=== PATIENT | female | born 1980 | race Caucasian/White ===

== ENCOUNTER 2018-02-03 15:06 | Outpatient (CLI) | payer BC, SELFPAY ==
--- NOTE | 2018-02-03 15:11 | DI.RAD_ITS ---
SYMPTOMS/DIAGNOSIS: COUGH, R05 PA AND LATERAL CHEST: The heart is normal in size. The lungs are clear. The mediastinal structures and pleura appear intact. CONCLUSION: Normal chest.
== END 2018-02-03 15:26 ==
PROVIDERS: PCP Nurse Practitioner; Visit Provider Nurse Practitioner
DX: R05 Cough (principal)
CPT/HCPCS: 71046

== ENCOUNTER 2018-03-10 11:48 | Outpatient (REF) | payer BC, SELFPAY | END 2018-03-10 12:08 | LOC: LBN 11:48 | PROVIDERS: PCP Nurse Practitioner; Visit Provider Family Medicine | DX: R30.0 Dysuria (principal) | CPT/HCPCS: 87086 ==

== ENCOUNTER 2018-04-05 10:35 | Emergency (ER) | payer BC, SELFPAY ==
[2018-04-05 10:39] VITALS: BP 121/80; PULSE 69; RESP 16; TEMP 36.4; O2SAT 99
--- NOTE | 2018-04-05 10:55 | DI.CT_ITS ---
SYMPTOM/DIAGNOSIS: CONTUSION TO LEFT KIDNEY. RENAL COLIC CT: Comparison CT scan 06/07/17. The visualized lung bases are clear. The unenhanced visualized portions of the liver, spleen, pancreas and bile ducts, and adrenal glands are unremarkable. The patient is status post cholecystectomy. 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 No nephrolithiasis, ureterolithiasis or hydronephrosis is seen. The urinary bladder is intact. The patient appears to be status post hysterectomy. There is a trace amount of free fluid in the left pericolic gutter. No focal fluid collection, abdominal or pelvic adenopathy or pneumoperitoneum is seen. No acute abnormality is seen in the osseous structures. IMPRESSION: No acute abnormality. No evidence of nephrolithiasis or obstructive uropathy.
--- NOTE | 2018-04-05 10:58 | W.ED.GENAD ---
Discharge Plan Disposition Patient Disposition: HOME Condition: Good Discharge Details Chief Complaint: FlankPain Clinical Impression: Back contusion Primary Care Provider: Kateryna Wilder ED Provider: Burt Haile Home Meds and New Rx's Prescriptions: No Action ipratropium-albuterol 0.5 mg-3 mg(2.5 mg base)/3 mL solution for nebulization 3 ml IH Q8H Qty: 180 RF: 3 nebulizer accessories misc .ROUTE .MEDSUPPLY Qty: 1 RF: 12 fexofenadine [Allergy Relief (fexofenadine)] 180 mg tablet 180 mg PO DAILY RF: 0 ProAir HFA 90 mcg/actuation HFA aerosol inhaler 2 puff Inhalation Q6H PRN (Reason: shortness of breath or wheezing) Qty: 1 RF: 12 gabapentin 300 MG capsule 300 mg PO BID Qty: 180 RF: 3 multivitamin [One Daily Essential] 1 EACH tablet 2 ea PO DAILY RF: 0 cholecalciferol (vitamin D3) 5,000 UNIT capsule 5,000 unit PO DAILY RF: 0 epinephrine [EpiPen 2-Chinedu] 0.3 MG/0.3 ML auto-injector 0.3 mg IM PRN Qty: 2 RF: 12 montelukast [Singulair] 10 MG tablet 10 mg PO DAILY Qty: 90 RF: 3 Discharge Instructions Instructions: Contusion in Adults (ED) Additional Instructions: May use NSAID of your choice for the pain. Referrals: [facility] Emergency Dept. [Outside] - Return if symptoms worsen Medical Decision Making Exam and history consistent with left flank contusion. Concern of rupture to hemangioma and/or laceration will evaluate with CT and UA. UA negative for blood. Normal UA. Reviewed CT results with pt. Advised she could use ibuprofen or NSAID of her choice for the pain. Return to ED if symptoms worsen. Discussed difference in hemangioma and angiolipoma. Imaging Data Radiologic Study: Imaging: CT Scan Radiologist's impression: v-ariana: No acute process. Incidentally Angiomyolipoma is recognized not hemangioma. Previous U/S in October confirms Angiolipoma. Lab Data Lab results reviewed: Yes I reviewed the patient's lab results. Lab results narrative: UA negative for blood. Normal UA. HPI General Mode of arrival: ambulatory. Date/Time Provider Initiated Documentation: 04/05/18 10:39. Limitations to Documentation: no limitations. Information obtained by: patient. History of Present Illness 37 year old F presents to the emergency department with the chief complaint of fall and contusion to kidney, described as mild, HPI Narrative: 37 y/o female here with c/o let flank contusion after fall. Approximately three hours ago she slipped on ice and landed on her steps. She impacted her left flank and hip. She is concerned about the flank impact because of a history of left renal hemangioma. She has urinated since the fall and did not see any blood in her urine. The pain has increased and she notices a mirella where the impact was. Denies any N/V/D or abdominal pain. Denies hitting her head. Related Data Home Medications Medication Instructions Recorded Confirmed gabapentin 300 mg PO BID #180 tab-cap 12/08/14 03/10/18 multivitamin [One Daily Essential] 2 ea PO DAILY 01/04/15 04/05/18 cholecalciferol (vitamin D3) 5,000 unit PO DAILY 02/06/17 04/05/18 epinephrine [Epipen 2-Chinedu] 0.3 mg IM PRN #2 syringe 03/15/17 04/05/18 montelukast [Singulair] 10 mg PO DAILY #90 tab-cap 10/31/17 04/05/18 albuterol sulfate HFA 90 2 puff INHALATION Q6H PRN #1 gm 01/24/18 04/05/18 mcg/actuation aerosol inhaler ipratropium-albuterol 0.5 mg-3 3 ml IH Q8H #180 ml 02/03/18 04/05/18 mg(2.5 mg base)/3 mL nebulization soln nebulizer accessories misc #1 each 02/03/18 03/10/18 fexofenadine 180 mg tablet 180 mg PO DAILY 03/10/18 04/05/18 Previous Rx's Medication Instructions Recorded epinephrine [Epipen 2-Chinedu] 0.3 mg IM PRN #2 syringe 03/15/17 montelukast [Singulair] 10 mg PO DAILY #90 tab-cap 10/31/17 albuterol sulfate HFA 90 2 puff INHALATION Q6H PRN #1 gm 01/24/18 mcg/actuation aerosol inhaler ipratropium-albuterol 0.5 mg-3 3 ml IH Q8H #180 ml 02/03/18 mg(2.5 mg base)/3 mL nebulization soln nebulizer accessories misc #1 each 02/03/18 Allergies Allergy/AdvReac Type Severity Reaction Status Date / Time Latex, Natural Rubber Allergy Intermediate rash Verified 04/05/18 10:44 metronidazole Allergy Intermediate Skin Rash Verified 04/05/18 10:44 sumatriptan [From Imitrex] AdvReac Unknown palpitation Verified 04/05/18 10:44 sumatriptan succinate AdvReac Unknown palpitation Verified 04/05/18 10:44 [From Imitrex] enviornmental Allergy Mild head Uncoded 04/05/18 10:44 congestion General Stated Complaint: FlankPain ARDEN: 3 Review of Systems Cardiovascular Reports system reviewed and no additional complaints, except as docu Respiratory Reports system reviewed and no additional complaints, except as docu Gastrointestinal Reports system reviewed and no additional complaints, except as docu Genitourinary Reports flank pain (after fall) Musculoskeletal Reports back pain Neurologic Reports system reviewed and no additional complaints, except as docu Hematologic/Lymphatic Reports system reviewed and no additional complaints, except as docu PFSH Medical History Asthma Endometriosis IBS (irritable bowel syndrome) Migraine with aura SHANNON (obstructive sleep apnea) Surgical History Cholecystectomy (01/15/17) Diagnostic Laproscopy (~2003) Dilation and curettage EGD - MAC (01/08/17) Endometrial Ablation (~2009) Hysterectomy, Laproscopic (03/09/15) Ligation of fallopian tube Family History Mother Alcohol abuse Essential hypertension Father Diabetes Essential hypertension Hyperlipidemia Sister No problems noted. Sister No problems noted. Brother No problems noted. Brother No problems noted. Sister No problems noted. Social History Smoking/Tobacco Use Status: Former Tobacco Use Exam Const General: cooperative, healthy appearing, comfortable and no acute distress Nutritional Appearance: average body habitus Orientation: alert, awake and oriented x3 HENMT Head: atraumatic Ears: hearing grossly normal bilaterally and external ears normal Eyes General: appearance normal, both eyes and all related structures Neck Neck: normal visual inspection, full ROM and no lymphadenopathy Resp Effort & Inspection: normal respiratory effort Auscultation: clear to auscultation bilaterally Cardio Rate: regular rate Rhythm: regular rhythm GI Inspection: non-distended Palpation: soft and tender in the LLQ and in the LUQ; not in the epigastrum, not at McBurney's point, Hope's sign negative and with no rebound tenderness Back/Spine/Pelvis Back: CVA tenderness (left ), ecchymosis (left flank. Early yet, more redness from abrasion from inpact on step) and back tenderness (left flank region. ) Cervical Spine: cervical ROM normal Thoracic/Lumbar Spine: thoraco-lumbar ROM normal Skin Trauma: abrasion (left flank) Neuro General: alert, awake, oriented x3 and gait normal Extrem General: full ROM and normal capillary refill Course Vital Signs Temperature 36.4 C L 04/05/18 10:39 Pulse 69 04/05/18 10:39 Respiratory Rate 16 04/05/18 10:39 Blood Pressure 121/80 04/05/18 10:39 Pulse Oximetry 99 04/05/18 10:39 Temperature 36.4 C L 04/05/18 10:39 Temperature Source Temporal Artery Scan 04/05/18 10:39 Pulse 69 04/05/18 10:39 Respiratory Rate 16 04/05/18 10:39 Respiratory Effort Non-Labored 04/05/18 10:42 Blood Pressure 121/80 04/05/18 10:39 Blood Pressure Position Sitting 04/05/18 10:39 Pulse Oximetry 99 04/05/18 10:39 Oxygen Delivery Method Room Air 04/05/18 10:39 Oxygen Flow Rate 0 04/05/18 10:39 Pain Level 3 04/05/18 10:39
[2018-04-05 11:06] LABS: Bilirubin Negative (Negative); Blood Negative (Negative); Clarity Clear; Glucose Negative (Negative); Ketones Negative (Negative); Leukocyte Esterase Negative (Negative); Nitrite Negative (Negative); Specific Gravity <= 1.005 (1.005-1.025); Urobilinogen 0.2 EU/dL (Up TO 0.2)
--- NOTE | 2018-04-05 11:12 | ED.GENADUL_ITS ---
Discharge Plan Disposition Patient Disposition: HOME Condition: Good Discharge Details Chief Complaint: FlankPain Clinical Impression: Back contusion Primary Care Provider: Kateryna Wilder ED Provider: Burt Haile Home Meds and New Rx's Prescriptions: No Action ipratropium-albuterol 0.5 mg-3 mg(2.5 mg base)/3 mL solution for nebulization 3 ml IH Q8H Qty: 180 RF: 3 nebulizer accessories misc .ROUTE .MEDSUPPLY Qty: 1 RF: 12 fexofenadine [Allergy Relief (fexofenadine)] 180 mg tablet 180 mg PO DAILY RF: 0 ProAir HFA 90 mcg/actuation HFA aerosol inhaler 2 puff Inhalation Q6H PRN (Reason: shortness of breath or wheezing) Qty: 1 RF: 12 gabapentin 300 MG capsule 300 mg PO BID Qty: 180 RF: 3 multivitamin [One Daily Essential] 1 EACH tablet 2 ea PO DAILY RF: 0 cholecalciferol (vitamin D3) 5,000 UNIT capsule 5,000 unit PO DAILY RF: 0 epinephrine [EpiPen 2-Chinedu] 0.3 MG/0.3 ML auto-injector 0.3 mg IM PRN Qty: 2 RF: 12 montelukast [Singulair] 10 MG tablet 10 mg PO DAILY Qty: 90 RF: 3 Discharge Instructions Instructions: Contusion in Adults (ED) Additional Instructions: May use NSAID of your choice for the pain. Referrals: [facility] Emergency Dept. [Outside] - Return if symptoms worsen Medical Decision Making Exam and history consistent with left flank contusion. Concern of rupture to hemangioma and/or laceration will evaluate with CT and UA. UA negative for blood. Normal UA. Reviewed CT results with pt. Advised she could use ibuprofen or NSAID of her choice for the pain. Return to ED if symptoms worsen. Discussed difference in hemangioma and angiolipoma. Imaging Data Radiologic Study: Imaging: CT Scan Radiologist's impression: v-ariana: No acute process. Incidentally Angiomyolipoma is recognized not hemangioma. Previous U/S in October confirms Angiolipoma. Lab Data Lab results reviewed: Yes I reviewed the patient's lab results. Lab results narrative: UA negative for blood. Normal UA. HPI General Mode of arrival: ambulatory . Date/Time Provider Initiated Documentation: 04/05/18 10:39 . Limitations to Documentation: no limitations . Information obtained by: patient . History of Present Illness 37 year old F presents to the emergency department with the chief complaint of fall and contusion to kidney, described as mild, HPI Narrative: 37 y/o female here wi th c/o let flank contusion after fall. Approximately three hours ago she slipped on ice and landed on her steps. She impacted her left flank and hip. She is concerned about the flank impact because of a history of left renal hemangioma. She has urinated since the fall and did not see any blood in her urine. The pain has increased and she notices a mirella where the impact was. Denies any N/V/D or abdominal pain. Denies hitting her head. Related Data Home Medications Medication Instructions Recorded Confirmed gabapentin 300 mg PO BID #180 tab-cap 12/08/14 03/10/18 multivitamin [One Daily Essential] 2 ea PO DAILY 01/04/15 04/05/18 cholecalciferol (vitamin D3) 5,000 unit PO DAILY 02/06/17 04/05/18 epinephrine [Epipen 2-Chinedu] 0.3 mg IM PRN #2 syringe 03/15/17 04/05/18 montelukast [Singulair] 10 mg PO DAILY #90 tab-cap 10/31/17 04/05/18 albuterol sulfate HFA 90 2 puff INHALATION Q6H PRN #1 gm 01/24/18 04/05/18 mcg/actuation aerosol inhaler ipratropium-albuterol 0.5 mg-3 3 ml IH Q8H #180 ml 02/03/18 04/05/18 mg(2.5 mg base)/3 mL nebulization soln nebulizer accessories misc #1 each 02/03/18 03/10/18 fexofenadine 180 mg tablet 180 mg PO DAILY 03/10/18 04/05/18 Previous Rx's Medication Instructions Recorded epinephrine [Epipen 2-Chinedu] 0.3 mg IM PRN #2 syringe 03/15/17 montelukast [Singulair] 10 mg PO DAILY #90 tab-cap 10/31/17 albuterol sulfate HFA 90 2 puff INHALATION Q6H PRN #1 gm 01/24/18 mcg/actuation aerosol inhaler ipratropium-albuterol 0.5 mg-3 3 ml IH Q8H #180 ml 02/03/18 mg(2.5 mg base)/3 mL nebulization soln nebulizer accessories misc #1 each 02/03/18 Allergies Allergy/AdvReac Type Severity Reaction Status Date / Time Latex, Natural Rubber Allergy Intermediate rash Verified 04/05/18 10:44 metronidazole Allergy Intermediate Skin Rash Verified 04/05/18 10:44 sumatriptan [From Imitrex] AdvReac Unknown palpitation Verified 04/05/18 10:44 sumatriptan succinate AdvReac Unknown palpitation Verified 04/05/18 10:44 [From Imitrex] enviornmental Allergy Mild head Uncoded 04/05/18 10:44 congestion General Stated Complaint: FlankPain ARDEN: 3 Review of Systems Cardiovascular Reports system reviewed and no additional complaints, except as docu Respiratory Reports system reviewed and no additional complaints, except as docu Gastrointestinal Reports system reviewed and no additional complaints, except as docu Genitourinary Reports flank pain (after fall) Musculoskeletal Reports back pain Neurologic Reports system reviewed and no additional complaints, except as docu Hematologic/Lymphatic Reports system reviewed and no additional complaints, except as docu PFSH Medical History Asthma Endometriosis IBS (irritable bowel syndrome) Migraine with aura SHANNON (obstructive sleep apnea) Surgical History Cholecystectomy (01/15/17) Diagnostic Laproscopy (~2003) Dilation and curettage EGD - MAC (01/08/17) Endometrial Ablation (~2009) Hysterectomy, Laproscopic (03/09/15) Ligation of fallopian tube Family History Mother Alcohol abuse Essential hypertension Father Diabetes Essential hypertension Hyperlipidemia Sister No problems noted. Sister No problems noted. Brother No problems noted. Brother No problems noted. Sister No problems noted. Social History Smoking/Tobacco Use Status: Former Tobacco Use Exam Const General: cooperative, healthy appearing, comfortable and no acute distress Nutritional Appearance: average body habitus Orientation: alert, awake and oriented x3 HENMT Head: atraumatic Ears: hearing grossly normal bilaterally and external ears normal Eyes General: appearance normal, both eyes and all related structures Neck Neck: normal visual inspection, full ROM and no lymphadenopathy Resp Effort & Inspection: normal respiratory effort Auscultation: clear to auscultation bilaterally Cardio Rate: regular rate Rhythm: regular rhythm GI Inspection: non-distended Palpation: soft and tender in the LLQ and in the LUQ; not in the epigastrum, not at McBurney's point, Hope's sign negative and with no rebound tenderness Back/Spine/Pelvis Back: CVA tenderness (left ), ecchymosis (left flank. Early yet, more redness from abrasion from inpact on step) and back tenderness (left flank region. ) Cervical Spine: cervical ROM normal Thoracic/Lumbar Spine: thoraco-lumbar ROM normal Skin Trauma: abrasion (left flank) Neuro General: alert, awake, oriented x3 and gait normal Extrem General: full ROM and normal capillary refill Course Vital Signs Temperature 36.4 C L 04/05/18 10:39 Pulse 69 04/05/18 10:39 Respiratory Rate 16 04/05/18 10:39 Blood Pressure 121/80 04/05/18 10:39 Pulse Oximetry 99 04/05/18 10:39 Temperature 36.4 C L 04/05/18 10:39 Temperature Source Temporal Artery Scan 04/05/18 10:39 Pulse 69 04/05/18 10:39 Respiratory Rate 16 04/05/18 10:39 Respiratory Effort Non-Labored 04/05/18 10:42 Blood Pressure 121/80 04/05/18 10:39 Blood Pressure Position Sitting 04/05/18 10:39 Pulse Oximetry 99 04/05/18 10:39 Oxygen Delivery Method Room Air 04/05/18 10:39 Oxygen Flow Rate 0 04/05/18 10:39 Pain Level 3 04/05/18 10:39
--- NOTE | 2018-04-05 12:07 | DI.VRAD_ITS ---
EXAM: CT Abdomen and Pelvis Without Contrast EXAM DATE/TIME: 04/05/2018 10:58 AM CLINICAL HISTORY: 37 years old, female; Pain; Other: Lt kidney pain after contusion to left kidney; Patient HX: Prior surgery: Hysterectomy TECHNIQUE: Axial computed tomography images of the abdomen and pelvis without contrast. All CT scans at this facility use at least one of these dose optimization techniques: automated exposure control; mA and/or kV adjustment per patient size (includes targeted exams where dose is matched to clinical indication); or iterative reconstruction. Coronal and sagittal reformatted images were created and reviewed. COMPARISON: CT ABD PELVIS WITH CONTRAST 06/07/2017 8:23 PM FINDINGS: Lower thorax: No acute findings. ABDOMEN: Liver: Normal. No mass. Gallbladder and bile ducts: Cholecystectomy Pancreas: Normal. No ductal dilation. Spleen: Normal. No splenomegaly. Adrenals: Normal. No mass. Kidneys and ureters: 6 mm angiomyolipoma in the left kidney. No hydronephrosis. No renal calculus Stomach and bowel: Normal. No obstruction. No mucosal thickening. Appendix: Normal appendix PELVIS: Bladder: Unremarkable as visualized. Reproductive: Hysterectomy ABDOMEN and PELVIS: Intraperitoneal space: Minimal free fluid in the left pericolic gutter Bones/joints: No acute fracture. No dislocation. Soft tissues: Unremarkable. Vasculature: Normal. No abdominal aortic aneurysm. Lymph nodes: Small retroperitoneal nodes IMPRESSION: No acute process Dictated and Authenticated by: Lorena Castaneda MD. Ordering:ARIS Dallas MD
[2018-04-05 12:32] VITALS: BP 114/75; PULSE 59; RESP 18; TEMP 36.6; O2SAT 97
== END 2018-04-05 12:33 | disposition home or self-care (01) ==
PROVIDERS: Emergency Provider Nurse Practitioner Family; PCP Nurse Practitioner
DX: S30.0XXA Contusion of lower back and pelvis, initial encounter (principal); W01.0XXA Fall on same level from slipping, tripping and stumbling without subsequent striking against object, initial encounter
CPT/HCPCS: 99284; 74176; 81003

== ENCOUNTER 2018-05-06 13:37 | Emergency (ER) | payer BC, SELFPAY ==
[2018-05-06] VITALS (54 sets, daily range): BP systolic 102–149; BP diastolic 50–91; PULSE 46–81; RESP 3–25; TEMP 36.6–36.7; O2SAT 93–100
--- NOTE | 2018-05-06 13:43 | DI.RAD_ITS ---
SYMPTOMS/DIAGNOSIS: PALPITATIONS PA AND LATERAL CHEST: Comparison is made with January,. The heart size is normal. The lungs are clear. No infiltrate, effusion or pneumothorax is seen. IMPRESSION: Negative chest x-ray.
[2018-05-06] MEDS: Normal Saline 1,000 ML 1000 ML IV (13:59)
[2018-05-06] MEDS: Normal Saline Flush 10 ML SYR IVP (14:01)
--- NOTE | 2018-05-06 14:04 | ED.GENADUL_ITS ---
Addendum entered and electronically signed by Burt Nam M.D. 05/06/18 17:46: 2nd ekg showed sinus rhythm, rate of 62, pr 172, no acute st t wave changes Original Note: Medical Decision Making <Burt Nam MD - Last Filed: 05/06/18 17:46> ECG Data Attestation: I personally reviewed and interpreted this ECG (s) as follows: Prior ECG tracings: not available for review Interpretation: sinus rhythm with rate of 66, pac's, pr 168, no acute st t wave ischemic changes <MYRIAM Trent - Last Filed: 05/08/18 17:10> Patient is a 37 year old female, history of asthma, endometriosis, IBS, migraine, SHANNON, peptic ulcer disease, presenting today with c/c of palpitations. She reports that she began having palpitations while at lunch break from work at 1100 today. She reports that since then she has had intermittent SOB with palpitations and chest pressure. STates these only last a few minutes and self resolve. Has not noted change with exertion or activity. She reports that she has had similar episodes in the past particularly around areas of stress. She reports that she has had increased stress and fatigue recently with increased work hours. Symptoms are intermittent and not linked to any particaular activity. Currently asymptomatic. Denies SOB currently, has not needed asthma treatment in a few weeks. No recent illness. No GI upset. No personal or familial history of cardiac disease. Endorses family history of HTN, no personal history of this. On exam, she appears fatigued. Normal heart sounds. Lungs clear. No abdominal pain. Plan to obtain cxr, EKG, labs. Discussed with patient. EKG reviewed by Dr. Nam, he noted PACs but otherwise no acute changes. NSR with rate of 66. CXR reviewed by radiologist: A AND LATERAL CHEST: Comparison is made with January,. The heart size is normal. The lungs are clear. No infiltrate, effusion or pneumothorax is seen. IMPRESSION: Negative chest x-ray. Labs significant for hypokalemis of 3.3, will replenish this here. Otherwise no significant abnormality. Troponin <0.02, will obtain 4 hour troponin and repeat EKG at that time. Discussed findings with the patient. She continues to have PACs on the monitor, will continue to watch. She is resting comfortably, currently asymptomatic. Patient receiving hydration and will obtain repeat troponin. Patient expressed to patient that she has had similar episodes previously with panic attacks. At the end of my shift, care was transitioned to Ángel Downey NP with repeat troponin and EKG pending. Plan to place zio patch if this remains normal. HPI <Burt Nam MD - Last Filed: 05/06/18 17:46> General Date/Time Provider Initiated Documentation: 05/06/18 13:38 . Related Data Home Medications Medication Instructions Recorded Confirmed multivitamin [One Daily Essential] 2 ea PO DAILY 01/04/15 05/06/18 cholecalciferol (vitamin D3) 5,000 unit PO DAILY 02/06/17 05/06/18 montelukast [Singulair] 10 mg PO DAILY #90 tab-cap 10/31/17 05/06/18 albuterol sulfate HFA 90 2 puff INHALATION Q6H PRN #1 gm 01/24/18 05/06/18 mcg/actuation aerosol inhaler ipratropium-albuterol 0.5 mg-3 3 ml IH Q8H #180 ml 02/03/18 05/06/18 mg(2.5 mg base)/3 mL nebulization soln nebulizer accessories misc #1 each 02/03/18 03/10/18 fexofenadine 180 mg tablet 180 mg PO DAILY 03/10/18 05/06/18 Previous Rx's Medication Instructions Recorded montelukast [Singulair] 10 mg PO DAILY #90 tab-cap 10/31/17 albuterol sulfate HFA 90 2 puff INHALATION Q6H PRN #1 gm 01/24/18 mcg/actuation aerosol inhaler ipratropium-albuterol 0.5 mg-3 3 ml IH Q8H #180 ml 02/03/18 mg(2.5 mg base)/3 mL nebulization soln nebulizer accessories misc #1 each 02/03/18 Allergies Allergy/AdvReac Type Severity Reaction Status Date / Time Latex, Natural Rubber Allergy Intermediate rash Verified 05/06/18 13:44 metronidazole Allergy Intermediate Skin Rash Verified 05/06/18 13:44 sumatriptan [From Imitrex] AdvReac Unknown palpitation Verified 05/06/18 13:44 sumatriptan succinate AdvReac Unknown palpitation Verified 05/06/18 13:44 [From Imitrex] enviornmental Allergy Mild head Uncoded 05/06/18 13:44 congestion <MYRIAM Trent - Last Filed: 05/08/18 17:10> General Mode of arrival: ambulatory . Limitations to Documentation: no limitations . Information obtained by: patient . History of Present Illness 37 year old F presents to the emergency department with the chief complaint of palpitations, described as moderate, with intensity rated at 4. Quality is described as aching (endorses chest pressure), and is localized to the chest. Patient reports no radiation. Patient started experiencing this hour(s) (began at 1100) and it has been intermittent. No relieving factors improve symptom(s), No exacerbating factors reported . Patient notes chest pain, malaise (reports increased fatigue secondary to increased work hours over the past few weeks) and shortness of breath (endorses SOB with palpitations); denies cough, diaphoresis, fever/chills, headaches, loss of appetite, nausea/vomiting, rash, seizure, syncope and weakness. Patient did receive the following treatments prior to arrival, none General Stated Complaint: Chest Pain ARDEN: 2 <MYRIAM Trent - Last Filed: 05/08/18 17:10> Constitutional Reports as per HPI, Denies chills, Denies fever(s), Denies headache(s), Denies lethargy and Denies poor appetite Eyes Denies change in vision ENT Denies headache(s) Cardiovascular Reports as per HPI, Reports chest pain, Denies chest pain with activity (intermittent), Denies syncope, Reports irregular heart rhythm, Denies leg edema, Reports lightheadedness, Denies radiating jaw, neck or arm pain, Reports palpitations, Reports dyspnea (with palpitations) and Denies dyspnea on exertion Respiratory Reports as per HPI, Denies cough, Reports dyspnea (with palpitations), Denies dyspnea on exertion and Denies wheezing Gastrointestinal Reports as per HPI, Denies abdominal pain, Denies diarrhea, Denies nausea and Denies vomiting Genitourinary Reports system reviewed and no additional complaints, except as docu (denies change in urinary habits) Musculoskeletal Reports as per HPI and Denies back pain Integumentary/Breasts Reports as per HPI and Denies rash Neurologic Denies syncope and Denies headache(s) Endocrine Reports palpitations Allergic/Immunologic Denies wheezing PFSH <Burt Nam MD - Last Filed: 05/06/18 17:46> Medical History Asthma Endometriosis IBS (irritable bowel syndrome) Migraine with aura SHANNON (obstructive sleep apnea) Surgical History Cholecystectomy (01/15/17) Diagnostic Laproscopy (~2003) Dilation and curettage EGD - MAC (01/08/17) Endometrial Ablation (~2009) Hysterectomy, Laproscopic (03/09/15) Ligation of fallopian tube Family History Mother Alcohol abuse Essential hypertension Father Diabetes Essential hypertension Hyperlipidemia Sister No problems noted. Sister No problems noted. Brother No problems noted. Brother No problems noted. Sister No problems noted. Social History Smoking/Tobacco Use Status: Former Tobacco Use <MYRIAM Trent - Last Filed: 05/08/18 17:10> Const General: cooperative, healthy appearing, comfortable, no acute distress and well developed Nutritional Appearance: average body habitus and well nourished Orientation: alert, awake and oriented x3 HENMT Head: normal to inspection Ears: hearing grossly normal bilaterally Mouth: moist mucous membranes Chest Chest: normal inspection of the chest, normal palpation of entire chest wall and no crepitus Resp Effort & Inspection: normal respiratory effort, able to speak in complete sentences and no respiratory distress Auscultation: clear to auscultation bilaterally, no rales, no rhonchi and no wheezes Cardio Rate: regular rate Rhythm: regular rhythm Heart Sounds: S1 normal and S2 normal GI Inspection: normal to inspection, no edema and non-distended Palpation: soft, no hepatosplenomegaly, not firm, no guarding, not rigid and nontender Auscultation: normal bowel sounds Back/Spine/Pelvis Back: no CVA tenderness Thoracic/Lumbar Spine: thoracic and lumbar spine normal to inspection Skin General skin exam: no rashes or lesions noted Trauma: no lacerations or abrasions Neuro General: alert, awake and oriented x3 Cognition: normal cognition Speech: speech normal Gait: normal gait Extrem General: normal to inspection, normal capillary refill, no pedal edema, no calf tenderness and normal gait Psych Appearance: grossly normal and well kempt Mental Status: mental status grossly normal Speech and Movement: speech and movement normal <MYRIAM Trent - Last Filed: 05/08/18 17:10> Vital Signs Temperature 36.7 C 05/06/18 13:40 Pulse 81 05/06/18 13:40 Respiratory Rate 16 05/06/18 13:40 Blood Pressure 149/86 H 05/06/18 13:40 Pulse Oximetry 100 05/06/18 13:40 Temperature 36.7 C 05/06/18 13:40 Temperature Source Skin 05/06/18 13:40 Pulse 81 05/06/18 13:40 Respiratory Rate 16 05/06/18 13:40 Respiratory Effort 05/06/18 13:56 Blood Pressure 149/86 H 05/06/18 13:40 Pulse Oximetry 100 05/06/18 13:40 Oxygen Delivery Method Room Air 05/06/18 13:40 Oxygen Flow Rate 0 05/06/18 13:40 Pain Level 3 05/06/18 13:40 Sign Out <Burt Nam MD - Last Filed: 05/06/18 17:46> Sign Out Data: Sign Out Comment: Care transitioned to Ángel Downey NP with 4 hour troponin and repeat EKG pending. Last updated by Neeta Hassan PA at 05/06/18 15:50 Post-Handoff Eval: Patient pending second troponin and EKG and disposition with potential ZIO patch if needed. Patient remained stable with no change in condition no new complaints. Agree with previous physical exam. Repeat EKG shows no acute changes compared to previous EKG performed in the day. Patient reassessed and states no chest pain, no further noted palpitations, no complaints at this time. Second troponin is also negative. Patient was given a ZIO patch and informed to follow-up with her primary care in the next couple weeks or return for any new or worsening symptoms. Given some aspect of stress-induced palpitations patient was encouraged to get plenty of rest, avoid caffeine and stimulants. After discussion of diagnosis and plan of care patient has no further needs, questions, or concerns and states clear understanding to return to the emergency department for any worsening symptoms.
[2018-05-06 14:08] LABS: Abs Immature Grans 0.02 k/cumm (0.0-0.09); Absolute Basophil Count 0.04 k/cumm (0.0-0.2); Absolute Lymphocyte Count 2.18 k/cumm (1.2-3.4); Absolute Monocyte Count 0.58 k/cumm (0.11-0.7); Absolute Neutrophil Count 4.39 k/cumm (1.2-6.7); Basophils % 0.5; Eosinophils % 1.4; HGB 14.9 g/dL (12.0-15.5); Immature Grans % 0.3; Lymphocytes % 29.8; Mean Corp. HGB Concentration 33.9 g/dL (32.0-36.0); Mean Corpuscular Hemoglobin 31.4 pg (27.0-33.0); Mean Corpuscular Volume 92.8 fL (80-95); Mean Platelet Volume 9.2 fL (8.0-11.0); Monocytes % 7.9; Neutrophils % 60.1; Platelet Count 325 x1000/uL (130-400); RBC 4.74 m/cumm (4.00-5.20); White Blood Cell Count 7.31 k/cumm (4.4-10.8)
[2018-05-06 14:20] LABS: ALT 20 U/L (12-78); AST 11 U/L (15-37); Albumin 4.1 g/dL (3.4-5.0); Alkaline Phosphatase 72 U/L (46-116); Anion Gap 9.8 mmol/L (3-11); BUN 13 mg/dL (7-18); Bilirubin, Total 0.5 mg/dL (0.2-1.0); CO2 30.2 mmol/L (21.0-32.0); CREATININE 0.97 mg/dL (0.55-1.02); Calcium 9.2 mg/dL (8.5-10.1); Chloride 101 mmol/L (98-107); Glucose 122 mg/dL (70-100); Magnesium 2.4 mg/dL (1.8-2.4); Potassium 3.3 mmol/L (3.5-5.1); Sodium 141 mmol/L (136-145); TSH 2.32 uIU/mL (0.358-3.74); Total Protein 8.4 g/dL (6.4-8.2)
[2018-05-06 14:26] LABS: Troponin I < 0.02 ng/mL (0.00-0.06)
[2018-05-06] MEDS: Potassium Chloride 20 MEQ TABCR PO (14:45)
--- NOTE | 2018-05-06 15:00 | NUR.NOTE ---
pt stated that she has had anxiety problems 4 yrs ago and couldn't breath tingling hands and stated that she was crying at the time and thought she was going to . pt stated that she has been using taping and grounding teak neak breathing with her pulse Nursing Note:
[2018-05-06 16:15] LABS: INR 0.9 (0.9-1.1); PTT Activated 24.8 sec (21.0-31.4); Prothrombin Time 9.1 sec (9.3-11.0)
[2018-05-06 18:18] LABS: Troponin I < 0.02 ng/mL (0.00-0.06)
--- NOTE | 2018-05-26 11:55 | ZIOP_ITS ---
ZIO PATCH INTERPRETATION DATE OF DICTATION May 26, 2018 INDICATION Palpitations. Analysis time - 10 days and 22 hours. Predominant underlying rhythm is sinus rhythm. Average heart rate 67 beats per minute. Minimum heart rate 44 beats per minute. Max heart rate 140 beats per minute. Frequent isolated atrial ectopy. Accounting for 8.6% of total beats. No runs of SVT or atrial fibrillation. No nonsustained VT. Rare isolated ventricular ectopy. No significant pauses or karan arrhythmias. 23 patient triggered events correspond predominantly to sinus rhythm and occasionally to sinus rhythm with isolated atrial ectopy. 14 diary entries with symptoms such as shortness of breath/chest pressure/fluttering/lightheadedness all predominantly corresponding to sinus rhythm and occasionally to sinus rhythm with isolated atrial ectopy. Pablo Chand M.D. GETACHEW/shannon T - 05/26/2018
== END 2018-05-06 18:48 | disposition home or self-care (01) ==
PROVIDERS: Physician Assistant; Emergency Provider Nurse Practitioner Family; PCP Nurse Practitioner Family
DX: R00.2 Palpitations (principal)
CPT/HCPCS: 36415; 80053; 93005; 93225; 96360; 99285; 71046; 83735; 84443; 84484; 85025; 85610; 85730; 93010

== ENCOUNTER 2018-06-26 06:58 | Outpatient (CLI) | payer BC, SELFPAY ==
[2018-06-26 08:50] LABS: Anion Gap 7.3 mmol/L (3-11); BUN 15 mg/dL (7-18); CO2 27.7 mmol/L (21.0-32.0); CREATININE 0.86 mg/dL (0.55-1.02); Calcium 8.7 mg/dL (8.5-10.1); Chloride 105 mmol/L (98-107); Cholesterol 202 mg/dL (50-200); Glucose 83 mg/dL (70-100); HDL Cholesterol 45 mg/dL (40-60); LDL CHOLESTEROL 126 mg/dL (<100); Sodium 140 mmol/L (136-145); Triglyceride 149 mg/dL (30-150)
== END 2018-06-26 07:18 ==
PROVIDERS: PCP Nurse Practitioner Family; Visit Provider Nurse Practitioner Family
DX: E78.5 Hyperlipidemia, unspecified (principal)
CPT/HCPCS: 36415; 80048; 80061; 83721

== ENCOUNTER 2018-10-27 01:14 | Outpatient (CLI) | payer BC, SELFPAY ==
--- NOTE | 2018-10-27 06:38 | DI.US_ITS ---
SYMPTOM/DIAGNOSIS; EPIGASTRIC PAIN, R10.13 ABDOMINAL ULTRASOUND: 10/27 Visualized liver parenchyma is normal in appearance. The gallbladder has been surgically removed. No biliary dilatation is seen. Pancreas is unremarkable as visualized but incompletely seen Kidneys are unremarkable with the exception of small echogenic focus of the left renal cortex, this probably corresponds to a small fat attenuation lesion seen on CT of 04/05/18 consistent with angiomyolipoma. Abdominal aorta and IVC are of normal diameter. CONCLUSION: No evidence of acute process. 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
== END 2018-10-27 01:34 ==
PROVIDERS: PCP Nurse Practitioner Family; Visit Provider Nurse Practitioner Family
DX: R10.13 Epigastric pain (principal); D17.71 Benign lipomatous neoplasm of kidney
CPT/HCPCS: 76700

== ENCOUNTER 2018-12-23 08:37 | Outpatient (REF) | payer BC, SELFPAY | END 2018-12-23 08:57 | LOC: LBN 08:37 | PROVIDERS: PCP Nurse Practitioner Family; Visit Provider Family Medicine | DX: R30.0 Dysuria (principal) | CPT/HCPCS: 87077; 87086; 87186 ==

== ENCOUNTER 2019-01-20 01:47 | Emergency (ER) | payer BC, SELFPAY ==
[2019-01-20 01:50] VITALS: BP 161/121; PULSE 131; RESP 24; TEMP 36.9; O2SAT 95
[2019-01-20 02:06] LABS: Bilirubin Negative (Negative); Blood Large (Negative); Clarity Clear (Clear); Glucose 100 mg/dL (Negative); Ketones Negative (Negative); Leukocyte Esterase Large (Negative); Nitrite Positive (Negative); Specific Gravity <= 1.005 (1.005-1.025)
--- NOTE | 2019-01-20 02:08 | ED.GENADUL_ITS ---
Discharge Plan Disposition Patient Disposition: HOME Condition: Good Discharge Details Chief Complaint: Urinary Clinical Impression: Complicated UTI (urinary tract infection) Primary Care Provider: Shefali Vizcarra ED Provider: Freedom Gonzalez [place] Meds and New Rx's Prescriptions: New hyoscyamine sulfate 0.125 mg tablet,disintegrating 0.125 mg PO BID-QID PRN (Reason: bladder spasms) Qty: 10 RF: 0 ciprofloxacin HCl 500 mg tablet 500 mg PO BID Qty: 14 RF: 0 Continued ipratropium-albuterol 0.5 mg-3 mg(2.5 mg base)/3 mL solution for nebulization 3 ml IH Q8H Qty: 180 RF: 3 Zyrtec 10 mg capsule 10 mg PO DAILY RF: 0 omeprazole 40 mg capsule,delayed release(DR/EC) 40 mg PO DAILY Qty: 90 RF: 4 Arnuity Ellipta 100 mcg/actuation blister with device 1 inh IH .QOD RF: 0 phentermine 15 mg capsule 15 mg PO DAILY RF: 0 albuterol sulfate [ProAir HFA] 90 mcg/actuation HFA aerosol inhaler 2 puff Inhalation Q6H PRN (Reason: shortness of breath or wheezing) Qty: 1 RF: 12 multivitamin [One Daily Essential] 1 EACH tablet 2 ea PO DAILY RF: 0 montelukast [Singulair] 10 mg tablet 10 mg PO DAILY Qty: 90 RF: 4 cholecalciferol (vitamin D3) 5,000 unit capsule 5,000 unit PO DAILY RF: 0 phenazopyridine [Pyridium] 200 mg tablet 200 mg PO TID PRN (Reason: pain) Qty: 6 RF: 0 Discharge Instructions Instructions: Ciprofloxacin (By mouth), Hyoscyamine (By mouth), Kidney Infection (ED) Additional Instructions: Because of the recent antibiotic use as well as the flank pain will presumed complicated UTI. We will place you on ciprofloxacin for 1 week. Pyridium as before if needed for discomfort with urination. Levsin if needed for bladder spasm. Tylenol and/or Motrin for pain fever. Follow-up with primary care in 2 to 3 days if not getting better. Return to ED for high fever, shaking chills, worsening back/flank pain, abdominal pain or vomiting. Referrals: Shefali Vizcarra, [employer]ANT [Primary Care Provider] - Medical Decision Making Signs and symptoms consistent with UTI. With complaint of flank and back pain and mild CVAT suggestive of possible pyelonephritis. She is afebrile. She is tachycardic but she is also hypertensive and quite uncomfortable. I do not think the tachycardia is related to sepsis but more pain and discomfort. Patient has been drinking plenty of fluids. She took Pyridium without relief. Urine dipstick here is positive for large blood and large leukocyte esterase as well as positive for nitrites. There are greater than 50 WBCs seen. Previous culture from a month ago was E. coli sensitive to everything but Bactrim. Given the recent antibiotics and the flank pain we will treat with Cipro 500 p.o. twice daily for 7 days. Will give Toradol for pain here. Will try Levsin for bladder spasm. Will continue Pyridium. Medical Records Medical records reviewed: Yes I reviewed the patient's medical records. Lab Data Lab results reviewed: Yes I reviewed the patient's lab results. HPI General Mode of arrival: ambulatory . Date/Time Provider Initiated Documentation: 01/20/19 01:58 . Limitations to Documentation: no limitations . Information obtained by: patient, RN notes reviewed and old records reviewed . HPI Narrative: Patient presents to ED with complaint of suprapubic pain, dysuria, urinary urgency. She has history of UTIs. She was recently diagnosed a month ago and treated for about 2 days with Keflex. Keflex was discontinued because of a rash though it was unclear whether the rash was related to antibiotic or viral illness that she had as well. She seemed to be doing okay until today. Started to have urinary symptoms which got significantly worse tonight. She has not had fever or chills. She has some right back/flank pain though not severe. Most of her discomfort is suprapubic pain, dysuria, urgency. She did take a leftover Pyridium about 4 hours prior to arrival. It has not really helped. She has not taken Tylenol or Motrin. Related Data Home Medications Medication Instructions Recorded Confirmed multivitamin [One Daily Essential] 2 ea PO DAILY 01/04/15 01/20/19 albuterol sulfate 90 mcg/actuation 2 puff INHALATION Q6H PRN #1 gm 01/24/18 01/20/19 aerosol inhaler ipratropium-albuterol 0.5 mg-3 3 ml IH Q8H #180 ml 02/03/18 01/20/19 mg(2.5 mg base)/3 mL nebulization soln cetirizine 10 mg capsule 10 mg PO DAILY 09/05/18 01/20/19 omeprazole 40 mg capsule,delayed 40 mg PO DAILY #90 cap 09/05/18 01/20/19 release fluticasone furoate 100 1 inh IH .QOD each 10/17/18 01/20/19 mcg/actuation blister powder for inhalation montelukast 10 mg tablet 10 mg PO DAILY #90 tab-cap 12/03/18 01/20/19 cholecalciferol (vitamin D3) 5,000 5,000 unit PO DAILY 12/23/18 01/20/19 unit capsule phentermine 15 mg capsule 15 mg PO DAILY 12/23/18 01/20/19 ciprofloxacin HCl 500 mg PO BID #14 tab 01/20/19 hyoscyamine sulfate 0.125 mg PO BID-QID PRN #10 tab 01/20/19 phenazopyridine [Pyridium] 200 mg PO TID PRN #6 tab 01/20/19 Previous Rx's Medication Instructions Recorded albuterol sulfate 90 mcg/actuation 2 puff INHALATION Q6H PRN #1 gm 01/24/18 aerosol inhaler ipratropium-albuterol 0.5 mg-3 3 ml IH Q8H #180 ml 02/03/18 mg(2.5 mg base)/3 mL nebulization soln omeprazole 40 mg capsule,delayed 40 mg PO DAILY #90 cap 09/05/18 release montelukast 10 mg tablet 10 mg PO DAILY #90 tab-cap 12/03/18 ciprofloxacin HCl 500 mg PO BID #14 tab 01/20/19 hyoscyamine sulfate 0.125 mg PO BID-QID PRN #10 tab 01/20/19 phenazopyridine [Pyridium] 200 mg PO TID PRN #6 tab 01/20/19 Allergies Allergy/AdvReac Type Severity Reaction Status Date / Time Latex, Natural Rubber Allergy Intermediate rash Verified 01/20/19 01:58 metronidazole Allergy Intermediate Skin Rash Verified 01/20/19 01:58 sumatriptan [From Imitrex] AdvReac Unknown palpitation Verified 01/20/19 01:58 sumatriptan succinate AdvReac Unknown palpitation Verified 01/20/19 01:58 [From Imitrex] enviornmental Allergy Mild head Uncoded 01/20/19 01:58 congestion General Stated Complaint: Urinary ARDEN: 3 Review of Systems Constitutional Constitutional: Denies chills and Denies fever(s) Gastrointestinal Gastrointestinal: Reports abdominal pain (suprapubic), Denies diarrhea, Denies nausea and Denies vomiting Genitourinary Genitourinary: Reports dysuria, Reports flank pain and Reports urinary urgency [facility] Medical History Abnormal uterine bleeding (Resolved) S/p hysterectomy Allergic rhinitis (Chronic) Angiomyolipoma of left kidney (Inactive ~2016) Endometriosis (Resolved 09/22/13) Generalized anxiety disorder (Chronic) Hyperlipidemia (Chronic) Irritable bowel syndrome (Inactive 12/08/14) Migraine headache with aura (Inactive 09/22/13) Mild intermittent asthma (Inactive) SHANNON (obstructive sleep apnea) (Chronic ~2008) Vitamin D insufficiency (Inactive 01/04/15) Surgical History Cholecystectomy (Inactive 01/15/17) Diagnostic Laproscopy (Inactive ~2003) for endometriosis Dilation and curettage (Inactive) X 2 for bleeding EGD - MAC (Inactive 01/08/17) Endometrial Ablation (Inactive ~2009) in [place] Hysterectomy, Laproscopic (Inactive 03/08/15) [place] [facility] [place] AUB, endometriosis Ligation of fallopian tube (Inactive) Status post bilateral sal[place]ectomy (Inactive 03/08/15[place] [facility] [place] History Smoking/Tobacco Use Status: Former Tobacco Use Tobacco: How many years used: 15 Alcohol Intake: current Alcohol Intake frequency: holidays/special occasions only Drug use: Never Substance use type: does not use Current gender identity: decline to answer What is your relationship status?: refused to answer How often do you talk on the phone with friends or family?: decline to answer How often do you get together with friends or relatives?: decline to answer How often do you attend alevism or denominational services?: decline to answer Do you belong to any clubs or organized social groups?: decline to answer Panel score (0-1 are the most socially isolated patients): 0 Duration: 15-30 minutes/day Frequency: 5-6 times per week Jennifer/Anabaptist: Unitarian Universalist Special jennifer needs: No Do you feel safe at home: Yes Do you feel safe in your relationship?: Yes Female Reproductive History Menstrual Menopause type: surgical (Hysterectomy for AUB in 2015) History History 2 Para 2 Hx # Term Pregnancies Multiple births Hx # Pregnancies Ectopic pregnancies AB induced Hx Number of Living Children 2 AB spontaneous Exam Narrative Exam Narrative: Vitals: Afebrile. Tachy and Hypertensive due to pain/anxiety. Const: WDWN female in uncomfortable and crying. HEENT: NC/AT. Normal facial exam. Lungs: Normal respiratory effort. Lungs are clear. Cor: RRR without murmur/gallop. Tachy. Back: Mild right CVAT. Neuro: A+O x 3. CN grossly in tact. Good strength and no focal deficit. Course Vital Signs Vital signs: Vital Signs Temperature 98.4 F 01/20/19 01:50 Pulse 131 H 01/20/19 01:50 Respiratory Rate 24 01/20/19 01:50 Blood Pressure 161/121 H 01/20/19 01:50 Pulse Oximetry 95 01/20/19 01:50 Temperature 98.4 F 01/20/19 01:50 Pulse 131 H 01/20/19 01:50 Respiratory Rate 24 01/20/19 01:50 Respiratory Effort 01/20/19 02:01 Blood Pressure 161/121 H 01/20/19 01:50 Pulse Oximetry 95 01/20/19 01:50 Pain Level 10 01/20/19 02:01
[2019-01-20 02:12] LABS: RBC 0-2 (0-2); WBC >50 HPF (0-5)
[2019-01-20 02:13] LABS: Bacteria Few HPF (Negative); C & S Indicated? No/Sq. Contamination; Casts Negative LPF (Negative); Crystals Negative HPF (Negative); Epithelial Cells Moderate HPF (Negative); Mucus Negative (Negative)
[2019-01-20] MEDS: Ketorolac 30 MG/ML VIAL IM (02:21)
[2019-01-20] MEDS: Ciprofloxacin 500 MG TAB PO (02:28)
[2019-01-20] MEDS: Hyoscyamine 0.125 MG SL/ORAL/CHEW SL (02:28)
[2019-01-20 02:52] VITALS: BP 119/70; PULSE 68; RESP 16; O2SAT 96
== END 2019-01-20 02:52 | disposition home or self-care (01) ==
LOC: ER 02:53
PROVIDERS: Emergency Provider Emergency Medicine; PCP Nurse Practitioner Family
DX: N39.0 Urinary tract infection, site not specified (principal); Z87.440 Personal history of urinary (tract) infections
CPT/HCPCS: 36415; 96372; 99284; 81003; 81015; J1885; J3490

== ENCOUNTER 2019-01-30 09:14 | Outpatient (REF) | payer BC, SELFPAY ==
[2019-01-30 10:38] LABS: Bilirubin Negative (Negative); Blood Negative (Negative); Clarity Clear (Clear); Glucose Negative (Negative); Ketones Negative (Negative); Leukocyte Esterase Negative (Negative); Nitrite Negative (Negative); Urobilinogen 0.2 EU/dL (Up TO 0.2)
== END 2019-01-30 09:34 ==
LOC: LBN 09:14
PROVIDERS: PCP Nurse Practitioner Family; Visit Provider Nurse Practitioner Family
DX: N12 Tubulo-interstitial nephritis, not specified as acute or chronic (principal)
CPT/HCPCS: 81003; 87086

== ENCOUNTER 2019-07-14 15:29 | Outpatient (CLI) | payer BC, SELFPAY ==
[2019-07-14 17:48] LABS: Anion Gap 6.3 mmol/L (3-11); BUN 9 mg/dL (7-18); CO2 29.7 mmol/L (21.0-32.0); CREATININE 0.88 mg/dL (0.55-1.02); Calcium 8.7 mg/dL (8.5-10.1); Chloride 104 mmol/L (98-107); Glucose 83 mg/dL (74-106); Potassium 4.1 mmol/L (3.5-5.1); Sodium 140 mmol/L (136-145)
== END 2019-07-14 15:49 ==
PROVIDERS: PCP Nurse Practitioner Family; Visit Provider Nurse Practitioner Family
DX: K21.0 Gastro-esophageal reflux disease with esophagitis (principal); E87.6 Hypokalemia
CPT/HCPCS: 36415; 80048

== ENCOUNTER 2019-08-07 08:47 | Outpatient (CLI) | payer BC, SELFPAY ==
[2019-08-10 08:53] LABS: COVID-19 RT-PCR Result Not Detected (NotDetected)
== END 2019-08-07 09:07 ==
PROVIDERS: PCP Nurse Practitioner Family; Visit Provider Nurse Practitioner Family
DX: R05 Cough (principal)
CPT/HCPCS: U0003

== ENCOUNTER 2019-11-28 17:14 | Emergency (ER) | payer BC, SELFPAY ==
[2019-11-28] VITALS (12 sets, daily range): BP systolic 119–146; BP diastolic 74–82; PULSE 52–78; RESP 9–18; TEMP 36.6–36.7; O2SAT 98–100
--- NOTE | 2019-11-28 17:15 | RT.EKG_ITS ---
APPROVED REPORT Exam: Resting ECG Patient Location: E HR:59 bpm ECG Measurements Heart Rate 59 AXIS [place] 155 P 54 QRSd 97 QRS 2 QT 469 T 48 QTc 463 Conclusion Sinus. T wave inversion in V1-2, seen in previous EKG.
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
[2019-11-28 17:38] LABS: Abs Immature Grans 0.03 10^3/uL (0.0-0.06); Absolute Basophil Count 0.04 10^3/uL (0.0-0.2); Absolute Eosinophil Count 0.04 10^3/uL (0.0-0.7); Absolute Lymphocyte Count 1.22 10^3/uL (1.2-3.4); Absolute Monocyte Count 0.62 10^3/uL (0.1-0.8); Absolute Neutrophil Count 9.15 10^3/uL (1.2-6.7); Basophils % 0.4; Eosinophils % 0.4; HCT 38.8 % (36.0-46.0); HGB 13.6 g/dL (11.2-15.7); Immature Grans % 0.3; MCH 31.3 pg (27.0-33.0); MCHC 35.1 % (32.0-36.0); MCV 89.4 fL (80-95); MPV 9.3 fL (8.0-11.0); Monocytes % 5.6; Neutrophils % 82.3; Nucleated RBC 0 %; Platelet Count 334 10^3/uL (130-400); RBC 4.34 10^6/uL (3.93-5.22); RDW 11.5 % (11.7-14.6); RDW-SD 37.1 fL; WBC 11.12 10^3/uL (4.4-10.8)
[2019-11-28 17:56] LABS: ALT 21 U/L (14-59); AST 15 U/L (15-37); Albumin 3.9 g/dL (3.4-5.0); Alkaline Phosphatase 61 U/L (46-116); Anion Gap 13.6 mmol/L (3-11); BUN 13 mg/dL (7-18); Bilirubin, Total 0.6 mg/dL (0.2-1.0); CO2 21.4 mmol/L (21.0-32.0); CREATININE 1.02 mg/dL (0.55-1.02); Calcium 8.7 mg/dL (8.5-10.1); Chloride 101 mmol/L (98-107); Glucose 110 mg/dL (74-106); Magnesium 1.8 mg/dL (1.8-2.4); Potassium 3.2 mmol/L (3.5-5.1); Sodium 136 mmol/L (136-145); Total Protein 7.5 g/dL (6.4-8.2); Troponin I < 0.05 ng/mL (<0.06)
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
[2019-11-28] MEDS: Potassium Chloride 20 MEQ TABCR PO (18:36)
[2019-11-28] MEDS: Ketorolac 15 MG/ML VIAL IVP (18:36)
[2019-11-28] MEDS: Ondansetron 4 MG/2 ML VIAL IVP (20:10)
--- NOTE | 2019-11-28 20:45 | RT.EKG_ITS ---
APPROVED REPORT Exam: Resting ECG Patient Location: E HR:60 bpm ECG Measurements Heart Rate 60 AXIS NJ 174 P 67 QRSd 97 QRS -18 QT 455 T 29 QTc 447 Conclusion Sinus bradycardia...rate< 60 Atrial premature complex...SV complex w/ short R-R interval
[2019-11-28 20:54] LABS: Troponin I < 0.05 ng/mL (<0.06)
== END 2019-11-28 21:30 | disposition home or self-care (01) ==
PROVIDERS: Emergency Provider Registered Nurse Emergency; PCP Nurse Practitioner Family
DX: R07.81 Pleurodynia (principal); V93 Other injury due to accident on board watercraft, without accident to watercraft; Y93.16 Activity, rowing, canoeing, kayaking, rafting and tubing; E87.6 Hypokalemia; R11.0 Nausea; R42 Dizziness and giddiness; R06.02 Shortness of breath
CPT/HCPCS: 36415; 80053; 93005; 96374; 96375; 99285; 71046; 83735; 84484; 85025; 93010; 99284; J1885; J2405

== ENCOUNTER 2019-12-07 20:37 | Outpatient (REF) | payer BC, SELFPAY ==
[2019-12-07 21:17] LABS: Potassium 3.9 mmol/L (3.5-5.1)
== END 2019-12-07 20:57 ==
LOC: LBN 20:37
PROVIDERS: PCP Nurse Practitioner Family; Visit Provider Nurse Practitioner Family
DX: E87.6 Hypokalemia (principal)
CPT/HCPCS: 84132

== ENCOUNTER 2020-01-01 15:06 | Outpatient (REF) | payer BC, SELFPAY ==
[2020-01-06 09:24] LABS: Misc Referral (VDH) See Comments
== END 2020-01-01 15:26 ==
LOC: LBN 15:06
PROVIDERS: PCP Nurse Practitioner Family; Visit Provider Nurse Practitioner Family
DX: R10.9 Unspecified abdominal pain (principal)
CPT/HCPCS: 87329; 87505

== ENCOUNTER 2020-01-08 08:42 | Outpatient (CLI) | payer BC, SELFPAY ==
[2020-01-09 17:25] LABS: COVID-19 RT-PCR Result NEGATIVE (Negative)
== END 2020-01-08 09:02 ==
PROVIDERS: PCP Nurse Practitioner Family; Visit Provider Surgery
DX: Z01.818 Encounter for other preprocedural examination (principal)
CPT/HCPCS: U0003

== ENCOUNTER 2020-01-11 07:57 | Day surgery (SDC) | payer BC, SELFPAY ==
[2020-01-11 08:29] VITALS: BP 122/80; PULSE 59; RESP 16; TEMP 36.5; O2SAT 100
[2020-01-11] MEDS: Lactated Ringers 1,000 ML 80 ML IV (08:50)
[2020-01-11] MEDS: Dicyclomine 10 MG CAP PO (10:20)
--- NOTE | 2020-01-11 10:42 | BOWEL_PTH ---
PATIENT: Oneyda Mehta LOC: [facility] U#:[id number] AGE/SX: 39/F ROOM: RE01/11/[address]: Jennifer Benites : 1980 BED: DIS: 01/11/2020 SPEC #: [id number] RECD: 01/11/20 12:40 STATUS: BO RE #: [id number] EDMUND: 01/11/20 10:[address]: Jennifer Benites DEPT: Surgical Specimen RECD BY: Makenna Craven ENTERED: 01/11/20 12:44 SP TYPE: Bowel OTHR DR: Shefali Vizcarra, RUDY Tissues: 1 - BIOPSY BOWEL 2 - BIOPSY BOWEL 3 - STOMACH BIOPSY 4 - STOMACH BIOPSY 5 - ESOPHAGUS BIOPSY 6 - ESOPHAGUS BIOPSY 7 - BIOPSY BOWEL 8 - BIOPSY BOWEL 9 - BIOPSY BOWEL 10 - BIOPSY BOWEL 11 - BIOPSY BOWEL Procedures: GROSS AND MICRO LEVEL 4 Comments: [id number]
--- NOTE | 2020-01-11 11:22 | W.PM.ENDDOP ---
Date of service: 12/30/19 Time of Service: 11:22 Endoscopy Report DATE OF PROCEDURE: 01/11/20 PRE-OP DIAGNOSIS: epigastric abdom pain and diarrhea POST-OP DIAGNOSIS: same PROCEDURE: egd w/ bx colon w/ bx ANESTHESIA: MAC ESTIMATED BLOOD LOSS: 2 PATHOLOGY: other COMPLICATIONS: None DISPOSITION: same day PROCEDURE DESCRIPTION: After informed consent was obtained the patient was take to the procedure room and placed in a supine position. Monitors were applied and a time out was done. The patients name, date of , procedure type, allergies to medications and metal in their body was reviewed. A bite block was placed and the patient was sedated. Once sedated and comfortable the gastroscope was advanced through the oropharynx which was grossly normal into the esophagus. The proximal and mid-esophagus were nl. In the distal esophagus there were no esophageal erosions varices diverticula or strictures apparent. There is no esophagitis. There is no hiatal hernia.. The scope was advanced into the stomach and through the pylorus into the 3rd portion of the duodenum. The scope was maneuvered into the proxial jejunum. The mus[place] appears nl. Bx were tkaen. The duodenum was noted to be nl. Biopsies were done: Proximal jejunum, duodenal bulb, antrum, greater curvature, GE junction, distal esophagus. All specimen is retrieved and no bleeding is noted.. The scope was retracted back into the stomach and biopsies were done to rule out H. pylori. There were no ulcers. There is some mild to moderate gastritis in the antral region in a striped fashion. The scope was retroflexed. The cardia and fundus were noted to be normal. There no a hiatal hernia noted. The scope was retracted back into the esophagus and biopsies were done of the GE junction to rule out Sapp's. The Z line was regular.
--- NOTE | 2020-01-11 11:24 | COLE_ITS ---
Date of service: 01/11/20 Time of Service: 11:24 Colonoscopy Report Date of procedure: 01/11/20 Pre-op diagnosis general: abdominal pain and diarrhea Post-op diagnosis procedure note: same Procedure: CE and bx. Surgeon: Jennifer Benites Anesthesia proc note operative: MAC Estimated blood loss (mL): 2 Pathology: other Complications: None Disposition: same day Prep: Miralax/Dulcolax Retraction Time: 10 mins Procedure Description: After informed consent was obtained the patient was taken to the procedure room and placed in a left decubitous position. Monitors were applied and a time out was done. The patients name, date of , procedure, allergies to medications and metal in their body was reviewed. The patient was then sedated. Once sedated and comfortable a rectal exam was done. External exam was normal. Internal exam revealed a normal sphincter tone and no palpable masses. The scope was then introduced and retrofelexed. NO internal hemorrhoids were identified. The scope was then advanced to the cecum w/out difficulty. The TI and appendiceal orifice were identified. The prep was good. The scope was then slowly retracted over 10 minutes back into the rectum. There are no polyps AVMs or diverticula apparent. The mucosa appears pink and healthy. Biopsies taken the cecum 70 cm 50 cm 30 cm and at the rectum. All specimen is retrieved and no bleeding is noted. The scope was removed and the patient was woken up and taken back to Same day surgery in stable condition. The patient tolerated the procedure well and there were no immediate compl ications. Follow up: The patient should follow up at age 51 unless they develop changes in bowel habits or other new gastrointestinal complaints.
--- NOTE | 2020-01-11 11:27 | W.PM.DSUDISC ---
Discharge Plan Disposition Patient Disposition: HOME Condition: Good Discharge Details Reason For Visit: egd and colon scopes Attending Provider: Jennifer Benites Primary Care Provider: Shefali Vizcarra Home Meds and New Rx's Prescriptions: No Action ipratropium-albuterol 0.5 mg-3 mg(2.5 mg base)/3 mL solution for nebulization 3 ml IH Q8H Qty: 180 RF: 3 Zyrtec 10 mg capsule 10 mg PO DAILY RF: 0 levalbuterol tartrate [Xopenex HFA] 45 mcg/actuation HFA aerosol inhaler 2 inh IH .Q4-6H PRN (Reason: shortness of breath or wheezing) Qty: 15 RF: 4 bupropion HCl 300 mg tablet extended release 24 hr 300 mg PO QAM RF: 0 dicyclomine 20 mg tablet 20 mg PO QID Qty: 20 RF: 0 sucralfate [Carafate] 1 gram tablet 1 gm PO QID Qty: 28 RF: 0 multivitamin [One Daily Essential] 1 EACH tablet 2 ea PO DAILY RF: 0 montelukast [Singulair] 10 mg tablet 10 mg PO DAILY Qty: 90 RF: 4 cholecalciferol (vitamin D3) 125 mcg (5,000 unit) capsule 5,000 unit PO .Every other day RF: 0 (DME) inhalational spacing device Spacer See Rx Instructions .ROUTE .MEDSUPPLY Qty: 1 RF: 4 Arnuity Ellipta 100 mcg/actuation blister with device 1 inh IH DAILY Qty: 30 RF: 4 Hold Instructions: Uses in Fall and Spring pantoprazole 40 mg tablet,delayed release (DR/EC) 40 mg PO DAILY Qty: 90 RF: 4 Discharge Instructions Additional Instructions: Findings:gastritis seen today colon appears nl. Biopsy's were taken on both scopes Continue with lifestyle modifications: no alcohol, tobacco products, Aspirin or NSAID's (ibuprofen, Motrin, Naprosyn, aleve, etc), soda pop/any carbonated beverages, caffeine (including tea & chocolate), and acidic foods, (tomatoes, citrus, onions, peppermints) spicy foods. Do not lie down for 30 minutes after eating, and do not eat 2 hours prior to bedtime. Avoid wearing tight fitting clothing/ belts -No lifting over 20 pounds or strenuous activity x24 hours. -Small light meals x24 hours. Follow up: 2-3 wks Please call if you develop: fevers >101.5 Nausea or Vomiting Abdominal pain that is not transient DAY SURGERY UNIT POST COLONOSCOPY INSTRUCTIONS 1. Because there will be medication in your system for the next 24 hours, you may feel a little sleepy. Your coordination will be affected. Therefore: a. Do not drive or operate dangerous equipment for 24 hours. b. Do not drink alcohol beverages for 24 hours (not even beer). c. Plan to go home and rest for the day. 2. Generally there are no restrictions on your activity after a day or so has gone by, but you may feel a bit fatigued for a few days. 3 After you arrive home you may have a light meal and return to a normal diet as you can tolerate it without feeling sick to your stomach. 4. After surgery, you may feel pain or discomfort. This should be only transient, but if it persists please contact your doctor. 5. If there are any questions regarding the findings of your procedure, please feel free to contact your doctor. 6. If you are unable to contact your doctor with a problem, contact the hospital at [phone]. 7. Continue all your regular medications unless directed otherwise. I understand the above instructions and have no questions. Signature of Patient or Responsible Adult Escort Date/Time Name of Responsible Adult Escort Signature of Nurse Date/Time Diet:: Other Discharge Orders Discharge Orders: Discharge Order (Routine); Ordered 01/11/20 Ordered By: Jennifer Benites DS: Diagnosis Discharge Diagnosis (1) GERD with esophagitis: Status: Chronic (2) Irritable bowel syndrome: Status: Inactive (3) Chronic erosive gastritis: Status: Acute
[2020-01-11 11:50] VITALS: BP 124/66; PULSE 55; RESP 16; TEMP 36; O2SAT 100
== END 2020-01-11 12:31 | disposition home or self-care (01) ==
PROVIDERS: PCP Nurse Practitioner Family; Visit Provider Surgery
PROC: (CPT 45380; principal; 2020-01-11 09:15)
DX: K21.0 Gastro-esophageal reflux disease with esophagitis (principal); R19.7 Diarrhea, unspecified; G47.33 Obstructive sleep apnea (adult) (pediatric); E78.5 Hyperlipidemia, unspecified; J45.20 Mild intermittent asthma, uncomplicated; K29.70 Gastritis, unspecified, without bleeding
CPT/HCPCS: 45380; 43239; 88305; J2001

== ENCOUNTER 2020-03-30 01:05 | Outpatient (CLI) | payer BC, SELFPAY ==
[2020-03-30] MEDS: Omnipaque 350 MG/ML 50 ML BTL IJ (08:27)
[2020-03-30] MEDS: Breeza Beverage 473 ML BTL PO ×2 (08:27→08:28)
[2020-03-30] MEDS: Normal Saline - Diluent 50 ML VIAL IV (10:14)
[2020-03-30] MEDS: Omnipaque 350 MG/ML 100 ML BTL IJ (10:15)
--- NOTE | 2020-03-30 10:20 | DI.CT_ITS ---
EXAM: CT ABDOMEN PELVIS W CLINICAL HISTORY: incidental questionable left renal mass ON US,N28.89. TECHNIQUE: Imaging Protocol: Axial computed tomography images with coronal and sagittal reformatted images were created and reviewed CONTRAST MATERIAL: Intravenous: Omnipaque 100cc Oral: None COMPARISON: CT CT renal colic wo from 04/05/2018 FINDINGS: VISUALIZED LUNG BASES: No nodules nor pleural effusions evident. ABDOMEN: There is no ascites. LIVER: There are no obvious focal hepatic lesions evident . GALLBLADDER/BILIARY: Gallbladder surgically absent. CBD is not dilated. PANCREAS: No evidence of pancreatic mass nor dilatation of the pancreatic duct. SPLEEN: Spleen is not enlarged. No obvious intrasplenic lesions. Splenic and portal veins are paten t. ADRENALS: There are no significant adrenal masses. KIDNEYS: No calculi nor hydronephrosis. No solid renal masses. Small 6-7 millimeter hypodensity in th e lateral cortex left kidney noted is either small cysts or possible benign angiomyolipoma, as mentio hever on the prior study. ABDOMINAL AORTA: Abdominal aorta is not enlarged and there is no pdlbxbmbtjpybsk-fqfi-duskbr adenopat hy. ABDOMINAL WALL/GI: No evidence of significant anterior abdominal wall hernia. No bowel obstruction. In the left flank there is no abnormal fluid collection intimately associated with the lateral wall o f the colon at the splenic flexure level, this measuring 3 centimetres 1.2 centimetres by 2.5 centime arline. This does not contain gas. There is no surrounding streaking. No diverticuli seen in this re gion nor elsewhere in visualized colon, including the sigmoid. PELVIS: GI: No evidence of appendicitis.No evidence of sigmoid diverticulitis. LYMPH NODES: There is no intrapelvic nor inguinal adenopathy. REPRODUCTIVE: Uterus surgically absent. No abnormal adnexal masses. URINARY BLADDER: No calculi nor obvious masses evident OSSEOUS: No significant osseous lesions. IMPRESSION: 1. No evidence of renal calculi nor hydronephrosis. Also no calculi in the urinary bladder. 2. Small benign-appearing lesion in the lateral cortex of the left kidney which measures approximatel y 6 x 7 millimeters and is either small cyst or possible benign angiomyolipoma. No other focal renal findings. 3. There is a significant finding in the left flank which is and abnormal 3 x 2.5 x 1.2 centimeter fl uid collection intimately associated with the lateral wall of the splenic flexure of the colon, large r than previous. This fluid collect is uniform in density and is not contain sediment nor gas bubble s. In addition, there do not appear to be obvious diverticuli in this region or elsewhere in the col on and there is no significant stranding in the surrounding fat. Nevertheless, this finding requires close follow-up. RADIATION DOSE DELIVERED: 1,786.84mGy.cm Total DLP DATA REPOSITORY: All CT scans at this facility are submitted to the National Radiology Data Registry (NRDR) Dose Index Registry (DIR) with the [employer] (ACR). RADIATION OPTIMIZATION: All CT scans at this facility use at least one of these dose optimization te chniques: automated exposure control; mA and/or kV adjustment per patient size (includes targeted exa ms where dose is matched to clinical indication); or iterative reconstruction.
== END 2020-03-30 01:25 ==
PROVIDERS: PCP Nurse Practitioner Family; Visit Provider Physician Assistant
DX: N28.89 Other specified disorders of kidney and ureter (principal); R18.8 Other ascites
CPT/HCPCS: 74177; J3490; Q9967

== ENCOUNTER 2020-04-05 08:40 | Outpatient (CLI) | payer BC, SELFPAY ==
[2020-04-07 21:29] LABS: COVID-19 RT-PCR Result NEGATIVE (Negative)
== END 2020-04-05 09:00 ==
PROVIDERS: PCP Nurse Practitioner Family; Visit Provider Nurse Practitioner Family
DX: Z11.59 Encounter for screening for other viral diseases (principal)
CPT/HCPCS: U0003

== ENCOUNTER 2020-04-26 16:55 | Emergency (ER) | payer BC, SELFPAY ==
[2020-04-26 17:00] VITALS: BP 149/99; PULSE 89; RESP 17; TEMP 36.4; O2SAT 99
[2020-04-26 17:28] LABS: Bilirubin Negative (Negative); Blood Negative (Negative); Clarity Clear (Clear); Glucose Negative (Negative); HCT 43.1 % (36.0-46.0); HGB 14.4 g/dL (11.2-15.7); Ketones Negative (Negative); Leukocyte Esterase Negative (Negative); MCHC 33.4 % (32.0-36.0); MCV 92.9 fL (80-95); MPV 8.8 fL (8.0-11.0); Nitrite Negative (Negative); Platelet Count 324 10^3/uL (130-400); RBC 4.64 10^6/uL (3.93-5.22); RDW 11.7 % (11.7-14.6); RDW-SD 39.7 fL; Specific Gravity 1.015 (1.005-1.025); Urobilinogen 0.2 EU/dL (Up TO 0.2); WBC 10.21 10^3/uL (4.4-10.8)
--- NOTE | 2020-04-26 17:34 | W.ED.GENAD ---
Discharge Plan Disposition Patient Disposition: HOME Condition: Good Discharge Details Clinical Impression: Abdominal pain, Hypokalemia Primary Care Provider: Shefali Vizcarra ED Provider: Neeta Hassan Home Meds and New Rx's Prescriptions: Continued ipratropium-albuterol 0.5 mg-3 mg(2.5 mg base)/3 mL solution for nebulization 3 ml IH Q8H Qty: 180 RF: 3 Zyrtec 10 mg capsule 10 mg PO DAILY RF: 0 Linzess 72 mcg capsule 72 mcg PO DAILY RF: 0 diclofenac sodium [Voltaren] 1 % gel 2 g topical QID Qty: 100 RF: 0 valacyclovir [Valtrex] 1 gram tablet 1,000 mg PO TID Qty: 21 RF: 0 levalbuterol tartrate [Xopenex HFA] 45 mcg/actuation HFA aerosol inhaler 2 inh IH .Q4-6H PRN (Reason: shortness of breath or wheezing) Qty: 15 RF: 4 bupropion HCl 300 mg tablet extended release 24 hr 300 mg PO QAM RF: 0 dicyclomine 20 mg tablet 20 mg PO QID Qty: 20 RF: 0 sucralfate [Carafate] 1 gram tablet 1 gm PO QID Qty: 28 RF: 0 multivitamin [One Daily Essential] 1 EACH tablet 2 ea PO DAILY RF: 0 cholecalciferol (vitamin D3) 125 mcg (5,000 unit) capsule 5,000 unit PO .Every other day RF: 0 (DME) inhalational spacing device Spacer See Rx Instructions .ROUTE .MEDSUPPLY Qty: 1 RF: 4 Arnuity Ellipta 100 mcg/actuation blister with device 1 inh IH DAILY Qty: 30 RF: 4 Hold Instructions: Uses in Fall and Spring pantoprazole 40 mg tablet,delayed release (DR/EC) 40 mg PO DAILY Qty: 90 RF: 4 montelukast [Singulair] 10 mg tablet 10 mg PO DAILY Qty: 90 RF: 4 sucralfate [Carafate] 1 gram tablet 1 g PO QACHS Qty: 120 RF: 12 Discharge Instructions Instructions: Hypokalemia (ED), Abdominal Pain (ED) Additional Instructions: Your imaging is reassuring here today. Your pain is likely associated with your recent surgery. Your potassium was low as well. You are given both oral and IV potassium. Please continue to encourage potassium rich food intake. You are low potassium is likely associated with your prep for surgery. You may continue with Mylanta to help with symptomatic management. Please take as prescribed on the bottle. Please contact your surgeon tomorrow to discuss any persistent symptoms. Follow-up as previously scheduled. If you develop fever/chills, vomiting, increased pain or other new/worsening symptoms please seek care urgently once again. Referrals: Shefali Vizcarra NP [Primary Care Provider] - Discharge Data Discharge Date/Time-TO BE ENTERED AT DEPARTURE: 04/26/20 20:53 Medical Decision Making Patient is a pleasant 31-year-old female presenting today with chief complaint of abdominal pain. Patient reports that she is been having a work-up for IBS recently. She had an EGD and colonoscopy yesterday. She reports that since then she has had increasing epigastric and umbilical pain. Worse when she is swallowing. She reports that she has poor p.o. intake today secondary to the severe discomfort with swallowing. This is also certain movements increase her discomfort. She contacted her surgeon who advised that she come here. She denies any fevers or chills. No nausea or vomiting. States that she has not had any bowel movement since her prep for the colonoscopy. Normal urinary habits. On exam, patient appears uncomfortable with movements. She is significantly tender with some guarding in the epigastric and umbilical area. No rebound tenderness. Negative psoas or obturator sign. Lungs are clear, normal cardiac exam. Plan for labs. Also plan for imaging. Concern for potential perforation. Also considered pancreatitis although the intermittent as of this pain makes this less likely. Patient has had colonoscopy. Patient's potassium is 2.8. We will begin the IV. Holding off on any p.o. until he had imaging back. FINDINGS: Liver: Normal. No mass. Gallbladder and bile ducts: Cholecystectomy. Pancreas: Normal. No ductal dilation. Spleen: Normal. No splenomegaly. Adrenal glands: Normal. No mass. Kidneys and ureters: Stable small left renal angiomyolipoma. No hydronephrosis. Stomach and bowel: No obstruction. Stable fluid attenuation focus lateral to the splenic flexure measuring approximately 1.7 cm. Appendix: Normal appendix. Intraperitoneal space: Unremarkable. No free air. No significant fluid collection. Vasculature: Unremarkable. No abdominal aortic aneurysm. Lymph nodes: Unremarkable. No enlarged lymph nodes. Urinary bladder: Unremarkable as visualized. Reproductive: Unremarkable as visualized. Bones/joints: Unremarkable. No acute fracture. Soft tissues: Unremarkable. IMPRESSION: Stable fluid attenuation focus adjacent to the splenic flexure. No acute findings. Discussed these findings with the patient. We help with the pain with swallowing with a GI cocktail. Patient was unable to tolerate p.o. liquids, fluids and p.o. Potassium. She has had a total of 60 mg. She will continue to increase her potassium intake. She has been low historically. This however, is likely associated with her prep for her colonoscopy and endoscopy yesterday. I did ask that she contact her surgeon tomorrow to discuss any continued symptoms. Strict return precautions were given. Patient did request 1 dosing of viscous lidocaine to go home with. I did advise that Delmi would also work to help with symptom management. Will give 1 dose of viscous lidocaine to go home with. All of her questions and concerns were addressed and she is in agreement with this plan. [facility] General Mode of arrival: ambulatory. Date/Time Provider Initiated Documentation: 04/26/20 17:34. Limitations to Documentation: no limitations. Information obtained by: patient and RN notes reviewed. History of Present Illness 39 year old F presents to the emergency department with the chief complaint of Epigastric pain, described as mild, with intensity rated at 2. Quality is described as aching, and is localized to the abdomen. Patient reports no radiation. Patient started experiencing this day(s) (1) and it has been intermittent. No relieving factors improve symptom(s), Other factors that worsen symptoms (Swallowing food) . Patient notes no other symptoms.. Patient did receive the following treatments prior to arrival, none Related Data Home Medications Medication Instructions Recorded Confirmed multivitamin [One Daily Essential] 2 ea PO DAILY 01/04/15 04/01/20 ipratropium 0.5 mg-albuterol 3 mg 3 ml IH Q8H #180 ml 02/03/18 04/01/20 (2.5 mg base)/3 mL nebulization soln cetirizine 10 mg capsule 10 mg PO DAILY 09/05/18 04/01/20 cholecalciferol (vitamin D3) 125 5,000 unit PO .Every other day cap 07/17/19 04/01/20 mcg (5,000 unit) capsule levalbuterol tartrate 45 2 inh IH .Q4-6H PRN #15 gm 07/17/19 04/01/20 mcg/actuation aerosol inhaler inhalational spacing device #1 each 07/23/19 04/01/20 fluticasone furoate 100 1 inh IH DAILY #30 each 12/02/19 04/01/20 mcg/actuation blister powder for inhalation bupropion HCl 300 mg 24 hr tablet, 300 mg PO QAM 12/07/19 04/01/20 extended release dicyclomine 20 mg tablet 20 mg PO QID #20 tab 12/24/19 04/01/20 sucralfate 1 gram tablet 1 gm PO QID #28 tab 12/29/19 04/01/20 pantoprazole 40 mg tablet,delayed 40 mg PO DAILY #90 tab-cap 01/08/20 04/01/20 release sucralfate [Carafate] 1 g PO QACHS #120 tab 01/11/20 04/01/20 montelukast 10 mg tablet 10 mg PO DAILY #90 tab-cap 03/07/20 04/01/20 diclofenac sodium 1 % topical gel 2 g TOPICAL QID #100 g 03/16/20 04/01/20 linaclotide 72 mcg capsule 72 mcg PO DAILY 03/16/20 04/01/20 valacyclovir 1 gram tablet 1,000 mg PO TID #21 tab 03/16/20 04/01/20 Previous Rx's Medication Instructions Recorded ipratropium 0.5 mg-albuterol 3 mg 3 ml IH Q8H #180 ml 02/03/18 (2.5 mg base)/3 mL nebulization soln levalbuterol tartrate 45 2 inh IH .Q4-6H PRN #15 gm 07/17/19 mcg/actuation aerosol inhaler inhalational spacing device #1 each 07/23/19 fluticasone furoate 100 1 inh IH DAILY #30 each 12/02/19 mcg/actuation blister powder for inhalation dicyclomine 20 mg tablet 20 mg PO QID #20 tab 12/24/19 sucralfate 1 gram tablet 1 gm PO QID #28 tab 12/29/19 pantoprazole 40 mg tablet,delayed 40 mg PO DAILY #90 tab-cap 01/08/20 release sucralfate [Carafate] 1 g PO QACHS #120 tab 01/11/20 montelukast 10 mg tablet 10 mg PO DAILY #90 tab-cap 03/07/20 diclofenac sodium 1 % topical gel 2 g TOPICAL QID #100 g 03/16/20 valacyclovir 1 gram tablet 1,000 mg PO TID #21 tab 03/16/20 Allergies Allergy/AdvReac Type Severity Reaction Status Date / Time Latex, Natural Rubber Allergy Intermediate rash Verified 03/16/20 11:06 metronidazole Allergy Intermediate Skin Rash Verified 03/16/20 11:06 sumatriptan [From Imitrex] AdvReac Unknown palpitation Verified 03/16/20 11:06 sumatriptan succinate AdvReac Unknown palpitation Verified 03/16/20 11:06 [From Imitrex] enviornmental Allergy Mild head Uncoded 03/16/20 11:06 congestion General Stated Complaint: Abd Prob ARDEN: 3 Review of Systems Constitutional Constitutional: Reports as per HPI, Denies chills, Denies fatigue, Denies fever(s) and Denies headache(s) ENT Ears, Nose, Mouth, and Throat: Denies headache(s) Cardiovascular Cardiovascular: Reports as per HPI, Denies chest pain and Denies dyspnea Respiratory Respiratory: Reports as per HPI, Denies cough and Denies dyspnea Gastrointestinal Gastrointestinal: Reports as per HPI Musculoskeletal Musculoskeletal: Reports as per HPI and Denies back pain Integumentary/Breasts Skin/Breast: Reports as per HPI and Denies rash Neurologic Neurologic: Reports as per HPI and Denies headache(s) Endocrine Endocrine: Denies fatigue [facility] Medical History (Updated 04/26/20 @ 20:47 by MYRIAM Trent) Allergic rhinitis Angiomyolipoma of left kidney Chronic erosive gastritis Generalized anxiety disorder Hyperlipidemia Irritable bowel syndrome Migraine headache with aura Mild intermittent asthma SHANNON (obstructive sleep apnea) Splenic cyst coelemic cyst of spleen. Vitamin D insufficiency Surgical History History of bilateral tubal ligation History of colonoscopy (~01/11/20) History of endometrial ablation History of esophagogastroduodenoscopy (EGD) (01/08/17) 01/11/20 Stoiber S/P cholecystectomy (01/15/17) S/P dilation and curettage S/P laparoscopic hysterectomy (03/08/15) [place] [facility] [place] AUB, endometriosis Status post bilateral salpingectomy (03/08/15) Family History Mother Alcohol abuse Essential hypertension Rheumatoid arthritis Depression Hyperlipidemia Father Essential hypertension Hyperlipidemia Type 2 diabetes mellitus Atrial fibrillation Heart disease Sister No problems noted. Sister No problems noted. Sister No problems noted. Brother No problems noted. Brother No problems noted. Daughter No problems noted. Daughter No problems noted. Maternal Grandfather Heart disease Essential hypertension Type 2 diabetes mellitus Hyperlipidemia Myocardial infarction Maternal Grandmother Essential hypertension Hyperlipidemia Paternal Grandfather Liver disease Paternal Grandmother No problems noted. Social History Smoking/Tobacco Use Status: Former Tobacco Use Tobacco: How many years used: 15 Second Hand Exposure: Yes Smoking risk assessment performed?: Yes Alcohol Intake: current Alcohol Intake frequency: holidays/special occasions only Alcohol type: wine Drug use: Never Substance use type: does not use Household members: spouse, children and other Details: [id number] Communication Needs: Corrective Lenses Do you need help understanding health information?: Never Pets and animals: Yes Pets and animals: cat(s) and dog(s) Sexually active: Yes Do you think of yourself as: straight/heterosexual Current gender identity: female What is your relationship status?: How often do you talk on the phone with friends or family?: three or more times per week How often do you get together with friends or relatives?: never How often do you attend mu-ism or mu-ism services?: 4 or more times per year Do you belong to any clubs or organized social groups?: no Panel score (0-1 are the most socially isolated patients): 3 What type of physical activity do you participate in: walking and yoga Duration: decline to answer Frequency: 1-2 times per week Jennifer/Quaker: Unitarian Universalist Special jennifer needs: No Seatbelt use: always Helmet use: Yes Helmet use: always Drive intox or ride w/intox tractor trailer driver: No Do you feel safe at home: Yes Do you feel safe in your relationship?: Yes Female Reproductive History Menstrual Menopause type: surgical (Hysterectomy for AUB in 2015) History History 2 Para 2 Hx # Term Pregnancies Multiple births Hx # Pregnancies Ectopic pregnancies AB induced Hx Number of Living Children 2 AB spontaneous Exam Const General: cooperative, healthy appearing, comfortable, no acute distress and well developed Nutritional Appearance: average body habitus and well nourished Orientation: alert and awake HENMT Head: normal to inspection Mouth: moist mucous membranes Resp Effort & Inspection: normal respiratory effort, able to speak in complete sentences and no respiratory distress Auscultation: clear to auscultation bilaterally, no rales, no rhonchi and no wheezes Cardio Rate: regular rate Rhythm: regular rhythm Heart Sounds: S1 normal and S2 normal GI Inspection: normal to inspection, no edema, non-distended, no visible herniation and no visible pulsation Palpation: soft, no hepatosplenomegaly, not firm, guarding (Umbilical), no hernias, no masses, no pulsatile masses, not rigid and tender in the epigastrum and periumbilically; with no rebound tenderness Percussion: normal to percussion Auscultation: normal bowel sounds Back/Spine/Pelvis Back: no CVA tenderness Skin General skin exam: no rashes or lesions noted Trauma: no lacerations or abrasions Neuro General: patient alert and patient awake Cognition: normal cognition Speech: speech normal Gait: normal gait Psych Appearance: grossly normal and well kempt Mental Status: mental status grossly normal Speech and Movement: speech and movement normal Course Vital Signs Vital signs: Vital Signs Temperature 36.4 C L 04/26/20 17:00 Pulse 89 04/26/20 17:00 Respiratory Rate 17 04/26/20 17:00 Blood Pressure 149/99 H 04/26/20 17:00 Pulse Oximetry 99 04/26/20 17:00 Temperature 36.4 C L 04/26/20 17:00 Pulse 89 04/26/20 17:00 Respiratory Rate 17 04/26/20 17:00 Respiratory Effort Non-Labored 04/26/20 17:02 Blood Pressure 149/99 H 04/26/20 17:00 Blood Pressure Position Sitting 04/26/20 17:00 Pulse Oximetry 99 04/26/20 17:00 Oxygen Delivery Method Room Air 04/26/20 17:00 Oxygen Flow Rate 0 04/26/20 17:00 Pain Level 2 04/26/20 17:00 Lab/Test Results Lab/Test Results: Laboratory Tests Range/Units 04/26/20 17:15 WBC (4.4-10.8) 10^3/uL 10.21 RBC (3.93-5.22) 10^6/uL 4.64 Hgb (11.2-15.7) g/dL 14.4 Hct (36.0-46.0) % 43.1 MCV (80-95) fL 92.9 MCH (27.0-33.0) pg 31.0 MCHC (32.0-36.0) % 33.4 RDW (11.7-14.6) % 11.7 Plt Count (130-400) 10^3/uL 324 MPV (8.0-11.0) fL 8.8
[2020-04-26 17:39] LABS: ALT 20 U/L (14-59); AST 9 U/L (15-37); Albumin 4.1 g/dL (3.4-5.0); Alkaline Phosphatase 64 U/L (46-116); Anion Gap 7.5 mmol/L (3-11); BUN 8 mg/dL (7-18); Bilirubin, Total 1.1 mg/dL (0.2-1.0); CO2 27.5 mmol/L (21.0-32.0); CREATININE 0.87 mg/dL (0.55-1.02); Calcium 9.4 mg/dL (8.5-10.1); Chloride 101 mmol/L (98-107); Glucose 89 mg/dL (74-106); Sodium 136 mmol/L (136-145)
[2020-04-26 17:41] LABS: Potassium 2.8 mmol/L (3.5-5.1)
--- NOTE | 2020-04-26 17:45 | DI.CT_ITS ---
EXAM: CT ABDOMEN PELVIS W CLINICAL HISTORY: EGD and colonoscopy yesterday, very point tender. TECHNIQUE: Imaging Protocol: Axial computed tomography images with coronal and sagittal reformatted images were created and reviewed CONTRAST MATERIAL: Intravenous: Omnipaque 100cc Oral: Yes COMPARISON: CT CT ABDOMEN PELVIS W from 03/30/2020 FINDINGS: VISUALIZED LUNG BASES: No nodules nor pleural effusions evident. ABDOMEN: There is no evidence of generalized ascites. However, the previously described ill-defined fluid col lection in the left flank at the splenic flexure level is again noted, exhibiting minimal if any sign ificant change from the prior study. Current measurements are 1.7 centimetres cephalocaudal by 1.8 c entimetres wide by 3 centimetres AP.. LIVER: There are no obvious focal hepatic lesions evident . GALLBLADDER/BILIARY: No obvious gallbladder pathology. CBD is not dilated. PANCREAS: No evidence of pancreatic mass nor dilatation of the pancreatic duct. SPLEEN: Spleen is not enlarged. No obvious intrasplenic lesions. Splenic and portal veins are paten t. ADRENALS: There are no significant adrenal masses. KIDNEYS:No cysts evident. No solid renal masses. No calculi nor hydronephrosis.. ABDOMINAL AORTA: Abdominal aorta is not enlarged and there is no lgasqdnqbhuwhdp-faks-yaxgzw adenopat hy. ABDOMINAL WALL/GI: No evidence of significant anterior abdominal wall hernia. No bowel obstruction. PELVIS: GI: No evidence of appendicitis.No evidence of sigmoid diverticulitis. LYMPH NODES: There is no intrapelvic nor inguinal adenopathy. REPRODUCTIVE: Uterus is surgically absent. There are no abnormal adnexal masses. URINARY BLADDER: No calculi nor obvious masses evident OSSEOUS: No significant osseous lesions. IMPRESSION: 1. Compared to the prior study of March 30, 2020 the previously described left flank fluid collecti on intimately associated with the lateral wall of the splenic flexure of the colon is again noted, pr esently with measurements as above. There are no new additional collections evident. 2. Small benign-appearing lesion in the lateral cortex of the left kidney is unchanged. Either cyst or possible small benign angiomyolipoma. 3. There is no generalized ascites and no evidence of lymphadenopathy. 4. No significant osseous lesions. RADIATION DOSE DELIVERED: 914.17mGy.cm Total DLP DATA REPOSITORY: All CT scans at this facility are submitted to the National Radiology Data Registry (NRDR) Dose Index Registry (DIR) with the [employer] (ACR). RADIATION OPTIMIZATION: All CT scans at this facility use at least one of these dose optimization te chniques: automated exposure control; mA and/or kV adjustment per patient size (includes targeted exa ms where dose is matched to clinical indication); or iterative reconstruction.
[2020-04-26] MEDS: Normal Saline 1,000 ML 1000 ML IV (18:02)
[2020-04-26] MEDS: POTASSIUM CHLORIDE 20 MEQ/100 ML BAG 50 MEQ IVPB (18:04)
[2020-04-26] MEDS: ACETAMINOPHEN 1,000 MG/100 ML BTL 400 MG IVPB (18:13)
[2020-04-26 18:26] LABS: Lipase 82 U/L (73-393)
[2020-04-26] MEDS: Omnipaque 350 MG/ML 100 ML BTL IJ (19:07)
[2020-04-26] MEDS: Normal Saline - Diluent 50 ML VIAL IV (19:08)
--- NOTE | 2020-04-26 19:31 | DI.VRAD_ITS ---
PROCEDURE INFORMATION: Exam: CT Abdomen And Pelvis With Contrast Exam date and time: 04/26/2020 7:03 PM Age: 39 years old Clinical indication: Abdominal pain; Prior surgery; Surgery date: Post-operative (0-2 days); Surgery type: Colonoscopy TECHNIQUE: Imaging protocol: Computed tomography of the abdomen and pelvis with intravenous contrast. COMPARISON: CT ABDOMEN PELVIS W 03/30/2020 10:12 AM FINDINGS: Liver: Normal. No mass. Gallbladder and bile ducts: Cholecystectomy. Pancreas: Normal. No ductal dilation. Spleen: Normal. No splenomegaly. Adrenal glands: Normal. No mass. Kidneys and ureters: Stable small left renal angiomyolipoma. No hydronephrosis. Stomach and bowel: No obstruction. Stable fluid attenuation focus lateral to the splenic flexure measuring approximately 1.7 cm. Appendix: Normal appendix. Intraperitoneal space: Unremarkable. No free air. No significant fluid collection. Vasculature: Unremarkable. No abdominal aortic aneurysm. Lymph nodes: Unremarkable. No enlarged lymph nodes. Urinary bladder: Unremarkable as visualized. Reproductive: Unremarkable as visualized. Bones/joints: Unremarkable. No acute fracture. Soft tissues: Unremarkable. IMPRESSION: Stable fluid attenuation focus adjacent to the splenic flexure. No acute findings. Dictated and Authenticated by: Sukhdev Rice MD. Ordering:RUBEN Santacruz MD
[2020-04-26] MEDS: Potassium Chloride 20 MEQ TABCR 40 MEQ PO (19:48)
[2020-04-26] MEDS: Lidocaine 2% Viscous 15 ML CUP (20:54)
[2020-04-26 20:55] VITALS: BP 115/75; PULSE 72; RESP 16; TEMP 36.7; O2SAT 100
[2020-04-26] MEDS: Lidocaine 2% Viscous 15 ML CUP PO (20:56)
== END 2020-04-26 20:53 | disposition home or self-care (01) ==
PROVIDERS: Emergency Provider Physician Assistant; PCP Nurse Practitioner Family
DX: E87.6 Hypokalemia (principal); R10.13 Epigastric pain; G89.18 Other acute postprocedural pain; Y83.8 Other surgical procedures as the cause of abnormal reaction of the patient, or of later complication, without mention of misadventure at the time of the procedure
CPT/HCPCS: 36415; 80053; 83690; 85027; 96361; 96365; 96366; 96368; 99285; 74177; 81003; 99284; J0131; J3480; J3490

== ENCOUNTER 2020-07-08 06:14 | Outpatient (CLI) | payer BC, SELFPAY ==
[2020-07-08 11:13] LABS: Anion Gap 7.7 mmol/L (3-11); BUN 11 mg/dL (7-18); CO2 28.3 mmol/L (21.0-32.0); CREATININE 0.9 mg/dL (0.55-1.02); Calcium 8.6 mg/dL (8.5-10.1); Calculated LDL 121 mg/dL (<100); Chloride 105 mmol/L (98-107); Cholesterol 209 mg/dL (<200); Glucose 81 mg/dL (74-106); HDL Cholesterol 63 mg/dL (40-60); Potassium 3.7 mmol/L (3.5-5.1); Sodium 141 mmol/L (136-145); Triglyceride 128 mg/dL (<150)
[2020-07-08 11:27] LABS: Hemoglobin A1C 5.5 % (<5.7)
== END 2020-07-08 06:15 | disposition home or self-care (01) ==
LOC: LBO 06:19
PROVIDERS: PCP Nurse Practitioner Family; Visit Provider Nurse Practitioner Family
DX: E78.5 Hyperlipidemia, unspecified (principal)
CPT/HCPCS: 80048; 80061; 83036

== ENCOUNTER 2020-09-28 01:09 | Outpatient (CLI) | payer BC, SELFPAY ==
--- NOTE | 2020-09-28 07:00 | DI.MRI_ITS ---
Exam(s) MR ABDOMEN WO/W EXAM: MR ABDOMEN WO/W CLINICAL HISTORY: f/u coelomic cyst spleen/pain left flank/hx trauma TECHNIQUE: Multiplanar multisequence MRA of the Abdomen was performed. CONTRAST MATERIAL: IV Contrast: 16 mL of Dotarem contrast administered. COMPARISON: CT ABD/PELVIS WO W CONTRAST from 10/19/2016 CT ABD PELVIS WITH CONTRAST from 06/07/[address] renal colic wo from 04/05/[address] ABD/PELVIS W CONTRAST from 12/29/[address] ABDOMEN PELVIS W from 03/30/[address] ABDOMEN PELVIS W from 04/26/2020 FINDINGS: Liver: Unremarkable. Pancreas: Unremarkable. Gallbladderand Bile Ducts: Unremarkable. Adrenals: Unremarkable. Kidneys: There is a nonenhancing round stable 7 mm cyst in the lateral aspect of the left kidney. No solid renal mass. No hydronephrosis. Spleen: Unremarkable. Aorta: Unremarkable. Soft Tissues: Unremarkable. Bone: Unremarkable. Lymph Nodes: Unremarkable. Peritoneal cavity: There is again seen a well-circumscribed 1.8 cc by 1.8 transverse by 3.1 AP lesion in the splenic flexure. It follows fluid on all pulse sequences. Following contrast administration , there is no internal or solid enhancement is seen. The finding is consistent with a simple cyst. No ascites. IMPRESSION: Stable simple cyst in the splenic flexure. DATA REPOSITORY:
[2020-09-28] MEDS: Gadoterate meglumine 20 ML VIAL 16 ML IVP (09:02)
== END 2020-09-28 01:29 ==
PROVIDERS: PCP Nurse Practitioner Family; Visit Provider Surgery
DX: R10.32 Left lower quadrant pain (principal); D73.4 Cyst of spleen; N28.1 Cyst of kidney, acquired
CPT/HCPCS: 74183

== ENCOUNTER 2020-09-28 02:46 | Outpatient (CLI) | payer BC, SELFPAY ==
[2020-09-28 08:35] LABS: Hemoglobin A1C 5.1 % (<5.7)
[2020-09-28 08:52] LABS: ALT 23 U/L (14-59); AST 12 U/L (15-37); Albumin 3.4 g/dL (3.4-5.0); Alkaline Phosphatase 55 U/L (46-116); Anion Gap 6.5 mmol/L (3-11); BUN 13 mg/dL (7-18); Bilirubin, Total 0.6 mg/dL (0.2-1.0); CO2 29.5 mmol/L (21.0-32.0); Calcium 8.4 mg/dL (8.5-10.1); Chloride 105 mmol/L (98-107); Glucose 89 mg/dL (74-106); Potassium 3.3 mmol/L (3.5-5.1); Sodium 141 mmol/L (136-145); TSH 2.19 uIU/mL (0.36-3.74); Total Protein 6.9 g/dL (6.4-8.2)
[2020-09-28 09:03] LABS: Calculated LDL 105 mg/dL (<100); Cholesterol 182 mg/dL (<200); HDL Cholesterol 56 mg/dL (40-60); Triglyceride 105 mg/dL (<150)
== END 2020-09-28 02:47 | disposition home or self-care (01) ==
LOC: LBO 02:46
PROVIDERS: PCP Nurse Practitioner Family; Visit Provider Nurse Practitioner Family
DX: E55.9 Vitamin D deficiency, unspecified (principal); E66.09 Other obesity due to excess calories; K21.9 Gastro-esophageal reflux disease without esophagitis; Z68.33 Body mass index [BMI] 33.0-33.9, adult
CPT/HCPCS: 80053; 80061; 82306; 83036; 84443

== ENCOUNTER 2020-12-21 22:05 | Emergency (ER) | payer BC, SELFPAY ==
[2020-12-21 22:08] VITALS: BP 151/105; PULSE 93; RESP 20; TEMP 36.6; O2SAT 97
--- NOTE | 2020-12-21 22:18 | W.ED.GENAD ---
Discharge Plan Disposition Patient Disposition: HOME Condition: Stable Discharge Details Clinical Impression: Complicated UTI (urinary tract infection) Primary Care Provider: Shefali Vizcarra ED Provider: Neeta Hassan Home Meds and New Rx's Prescriptions: New ciprofloxacin HCl 500 mg tablet 500 mg PO BID 4 Days Qty: 8 RF: 0 hyoscyamine sulfate [Levsin] 0.125 mg tablet 0.125 mg PO BID-QID PRN (Reason: bladder spasms) Qty: 10 RF: 0 Continued (DME) inhalational spacing device Spacer See Rx Instructions .ROUTE .MEDSUPPLY Qty: 1 RF: 4 bupropion HCl 300 mg tablet extended release 24 hr 300 mg PO DAILY Qty: 90 RF: 4 levalbuterol tartrate [Xopenex HFA] 45 mcg/actuation HFA aerosol inhaler 2 inh IH .Q4-6H PRN (Reason: shortness of breath or wheezing) Qty: 15 RF: 4 multivitamin [One Daily Essential] 1 EACH tablet 2 ea PO DAILY RF: 0 cholecalciferol (vitamin D3) 125 mcg (5,000 unit) capsule 5,000 unit PO .Every other day RF: 0 pantoprazole 40 mg tablet,delayed release (DR/EC) 40 mg PO DAILY Qty: 90 RF: 4 montelukast [Singulair] 10 mg tablet 10 mg PO DAILY Qty: 90 RF: 4 Arnuity Ellipta 100 mcg/actuation blister with device 1 inh IH DAILY Qty: 90 RF: 4 Hold Instructions: Uses in Fall and Spring No Action ipratropium-albuterol 0.5 mg-3 mg(2.5 mg base)/3 mL solution for nebulization 3 ml IH Q8H PRNRF: 0 sucralfate [Carafate] 1 gram tablet 1 g PO QACHS PRNRF: 0 dicyclomine 20 mg tablet 20 mg PO QID PRNRF: 0 Discharge Instructions Instructions: Urinary Tract Infection in Women (ED) Additional Instructions: Your imaging is reassuring. No evidence of kidney stone. However, I am concerned that you develop another urinary tract infection. Please encourage hydration. You may use Tylenol and ibuprofen as needed for discomfort. Please take the ciprofloxacin as prescribed. You were given your first dose here evening. You may use the Levsin as prescribed to help any bladder spasms and discomfort. If you develop fever/chills, inability stay hydrated or other new/worsening symptoms please seek care urgently once again. Otherwise, follow-up with your primary care next week for reevaluation Referrals: Shefali Vizcarra NP [Primary Care Provider] - Discharge Data Discharge Date/Time-TO BE ENTERED AT DEPARTURE: 12/22/20 00:45 Medical Decision Making Patient is a pleasant 40-year-old female presents today with chief complaint of right flank pain and dysuria. She reports that she started feeling. She denies any fevers or chills. States that she had nausea. No vomiting. No change in bowel. Has not noted prakash hematuria. Has had similar episodes historically. Primary care provider was concerned at that time that she may have passed a kidney stone. States that this feels quite similar. Denies any vaginal discharge. Past surgical history is pertinent for cholecystectomy, appendectomy, hysterectomy. On exam, patient appears nontoxic. She is hypertensive and cardiac. She does appear uncomfortable. She does have pain with percussion over the right CVA. Also has some discomfort elicited with palpation of the low central abdomen. No peritoneal findings. Patient history and exam, primarily concern for UTI versus stone. I do not see any evidence to suggest a surgical abdomen. Will obtain renal CT, UA and baseline labs. Discussed this plan with the patient who is in agreement. Patient given Toradol for discomfort and Zofran for nausea. FINDINGS: Lungs: Lung bases are clear. Liver: Normal. No mass. Gallbladder and bile ducts: Prior cholecystectomy. Pancreas: Normal. No ductal dilation. Spleen: Normal spleen. A small loculated fluid collection at the anterior inferior margin of the spleen is unchanged from September 2020, 3.4 x 1.6 cm. Wall is thin and there is no fat stranding associated with the collection. Adrenal glands: Normal. No mass. Kidneys and ureters: Negative for hydronephrosis or perinephric fat stranding. There are no stones observed in the ureters or the collecting systems. Stomach and bowel: Small bowel is not dilated. Negative for inflammatory changes around the colon. Appendix: A normal appendix is observed, inferior and lateral to the cecum. Intraperitoneal space: Unremarkable. No free air. No significant fluid collection. Vasculature: Multiple phleboliths are present in the pelvis. Lymph nodes: Unremarkable. No enlarged lymph nodes. Urinary bladder: Urinary bladder veras are thin and uniform. There are no stones observed in the urinary bladder. Reproductive: Subtotal hysterectomy. Negative for adnexal mass or cyst. Right ovarian follicle 2.0 cm. Bones/joints: Unremarkable. No acute fracture. Soft tissues: Unremarkable. IMPRESSION: 1. Negative for hydronephrosis or urolithiasis. 2. Normal appendix. Discussed fidnigns with the patient. Diagnosed with UTI, concerning for pyelonephritis. Will treat with abx. We discussed pain management. She reports that she did best when previously treated with Levsin and Cipro. Reviewed notes and see she received this here historically. Will do the same as she tolerated this well. enocuraged hydration. Advised probiotic. Return precautions discussed. ADvised f/u with PCP in 1 week for reevaluation. all of her questions and concerns were addressed, she is in agreement with this plan. HPI General Mode of arrival: ambulatory. Date/Time Provider Initiated Documentation: 12/21/20 22:05. Limitations to Documentation: no limitations. Information obtained by: patient and RN notes reviewed. History of Present Illness 40 year old F presents to the emergency department with the chief complaint of dysurea, flank pain, described as severe, with intensity rated at 10. Quality is described as burning, and is localized to the pelvis. Patient reports no radiation. Patient started experiencing this hour(s) and it has been constant. No relieving factors improve symptom(s), Other factors that worsen symptoms (urination) . Patient notes nausea/vomiting; denies chest pain, diaphoresis, fever/chills, loss of appetite, rash, shortness of breath and weakness. Patient did receive the following treatments prior to arrival, none Related Data Home Medications Medication Instructions Recorded Confirmed multivitamin [One Daily Essential] 2 ea PO DAILY 01/04/15 12/22/20 cholecalciferol (vitamin D3) 125 5,000 unit PO .Every other day cap 07/17/19 12/22/20 mcg (5,000 unit) capsule levalbuterol tartrate 45 2 inh IH .Q4-6H PRN #15 gm 07/17/19 12/22/20 mcg/actuation aerosol inhaler pantoprazole 40 mg tablet,delayed 40 mg PO DAILY #90 tab-cap 01/08/20 12/22/20 release montelukast 10 mg tablet 10 mg PO DAILY #90 tab-cap 03/07/20 12/22/20 fluticasone furoate 100 1 inh IH DAILY #90 ea 05/04/20 12/22/20 mcg/actuation blister powder for inhalation bupropion HCl 300 mg 24 hr tablet, 300 mg PO DAILY #90 tab 07/14/20 12/22/20 extended release inhalational spacing device #1 each 07/14/20 07/14/20 ciprofloxacin HCl 500 mg PO BID 4 Days #8 tab 12/22/20 dicyclomine 20 mg PO QID PRN 12/22/20 hyoscyamine sulfate [Levsin] 0.125 mg PO BID-QID PRN #10 tab 12/22/20 ipratropium-albuterol 3 ml IH Q8H PRN 12/22/20 12/22/20 sucralfate [Carafate] 1 g PO QACHS PRN 12/22/20 12/22/20 Previous Rx's Medication Instructions Recorded levalbuterol tartrate 45 2 inh IH .Q4-6H PRN #15 gm 07/17/19 mcg/actuation aerosol inhaler pantoprazole 40 mg tablet,delayed 40 mg PO DAILY #90 tab-cap 01/08/20 release montelukast 10 mg tablet 10 mg PO DAILY #90 tab-cap 03/07/20 fluticasone furoate 100 1 inh IH DAILY #90 ea 05/04/20 mcg/actuation blister powder for inhalation bupropion HCl 300 mg 24 hr tablet, 300 mg PO DAILY #90 tab 07/14/20 extended release inhalational spacing device #1 each 07/14/20 ciprofloxacin HCl 500 mg PO BID 4 Days #8 tab 12/22/20 hyoscyamine sulfate [Levsin] 0.125 mg PO BID-QID PRN #10 tab 12/22/20 Allergies Allergy/AdvReac Type Severity Reaction Status Date / Time Latex, Natural Rubber Allergy Intermediate rash Verified 12/22/20 00:41 metronidazole Allergy Intermediate Skin Rash Verified 12/22/20 00:41 sumatriptan [From Imitrex] AdvReac Unknown palpitation Verified 12/22/20 00:41 sumatriptan succinate AdvReac Unknown palpitation Verified 12/22/20 00:41 [From Imitrex] enviornmental Allergy Mild head Uncoded 12/22/20 00:41 congestion General Stated Complaint: Urinary ARDEN: 3 Review of Systems Constitutional Constitutional: Reports as per HPI, Denies chills, Denies fatigue, Denies fever(s) and Denies headache(s) ENT Ears, Nose, Mouth, and Throat: Denies headache(s) Cardiovascular Cardiovascular: Reports as per HPI, Denies chest pain and Denies dyspnea Respiratory Respiratory: Reports as per HPI, Denies cough and Denies dyspnea Gastrointestinal Gastrointestinal: Reports as per HPI Genitourinary Genitourinary: Reports as per HPI Musculoskeletal Musculoskeletal: Reports as per HPI Neurologic Neurologic: Denies headache(s) Endocrine Endocrine: Denies fatigue [facility] Medical History Allergic rhinitis Angiomyolipoma of left kidney Chronic erosive gastritis Colon abnormality Left flank mass seen on abd/pelvic CT 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 Benites Generalized anxiety disorder Hyperlipidemia Irritable bowel syndrome Migraine headache with aura Mild intermittent asthma SHANNON (obstructive sleep apnea) Vitamin D insufficiency Surgical History History of bilateral tubal ligation History of colonoscopy (~01/11/20) History of endometrial ablation History of esophagogastroduodenoscopy (EGD) (01/08/17) 01/11/20 Delmis S/P cholecystectomy (01/15/17) S/P dilation and curettage S/P laparoscopic hysterectomy (03/08/15) With bilateral salpingectomy at [facility] by Dr Carolynn Shi for AUB, endometriosis Status post bilateral salpingectomy (03/08/15) Family History Mother Alcohol abuse Essential hypertension Rheumatoid arthritis Depression Hyperlipidemia Father Essential hypertension Hyperlipidemia Type 2 diabetes mellitus Atrial fibrillation Heart disease Sister No problems noted. Sister No problems noted. Sister No problems noted. Brother No problems noted. Brother No problems noted. Daughter No problems noted. Daughter No problems noted. Maternal Grandfather Heart disease Essential hypertension Type 2 diabetes mellitus Hyperlipidemia Myocardial infarction Maternal Grandmother Essential hypertension Hyperlipidemia Paternal Grandfather Liver disease Paternal Grandmother No problems noted. Social History Smoking/Tobacco Use Status: Former Tobacco Use tobacco type: cigarettes Tobacco: How many years used: 15 Second Hand Exposure: No Smoking risk assessment performed?: Yes Alcohol Intake: current Alcohol Intake frequency: a few times a week Alcohol type: wine Drug use: Never Substance use type: does not use Household members: spouse, family and children Communication Needs: Corrective Lenses Do you need help understanding health information?: Never Pets and animals: Yes Pets and animals: cat(s) and dog(s) Sexually active: Yes Do you think of yourself as: straight/heterosexual Current gender identity: female What is your relationship status?: How often do you talk on the phone with friends or family?: once per week How often do you get together with friends or relatives?: never How often do you attend jehovah's witness or cheondoism services?: decline to answer Do you belong to any clubs or organized social groups?: no Panel score (0-1 are the most socially isolated patients): 1 What type of physical activity do you participate in: walking Duration: 15-30 minutes/day Frequency: 1-2 times per week Jennifer/Sikh: No preference Special jennifer needs: No Seatbelt use: always Helmet use: Yes Helmet use: always Drive intox or ride w/intox regional owner operator truck driver: No Do you feel safe at home: Yes Do you feel safe in your relationship?: Yes Female Reproductive History Menstrual Menopause type: surgical (Hysterectomy for AUB in 2015) History History 2 Para 2 Hx # Term Pregnancies Multiple births Hx # Pregnancies Ectopic pregnancies AB induced Hx Number of Living Children 2 AB spontaneous Exam Const General: cooperative, healthy appearing, uncomfortable, no acute distress and well developed Nutritional Appearance: average body habitus and well nourished Orientation: alert and awake HENMT Mouth: moist mucous membranes Resp Effort & Inspection: normal respiratory effort and no respiratory distress Auscultation: clear to auscultation bilaterally, no rales, no rhonchi and no wheezes Cardio Rate: regular rate Rhythm: regular rhythm Heart Sounds: S1 normal and S2 normal GI Inspection: normal to inspection, no edema and non-distended Palpation: soft, no hepatosplenomegaly, no guarding, no hernias, no pulsatile masses and tender (low central abdomen) Percussion: normal to percussion Auscultation: normal bowel sounds Back/Spine/Pelvis Back: CVA tenderness (right) Skin General skin exam: no rashes or lesions noted Neuro General: patient alert and patient awake Cognition: normal cognition Speech: speech normal Gait: normal gait Psych Appearance: grossly normal and well kempt Mental Status: mental status grossly normal Speech and Movement: speech and movement normal Course Vital Signs Vital signs: Vital Signs Temperature 36.6 C 12/21/20 22:08 Pulse 93 H 12/21/20 22:08 Respiratory Rate 20 12/21/20 22:08 Blood Pressure 151/105 H 12/21/20 22:08 Pulse Oximetry 97 12/21/20 22:08 Temperature 36.6 C 12/21/20 22:08 Temperature Source Temporal Artery Scan 12/21/20 22:08 Pulse 93 H 12/21/20 22:08 Respiratory Rate 20 12/21/20 22:08 Blood Pressure 151/105 H 12/21/20 22:08 Blood Pressure Position Sitting 12/21/20 22:08 Pulse Oximetry 97 12/21/20 22:08 Oxygen Delivery Method Room Air 12/21/20 22:08 Oxygen Flow Rate 0 12/21/20 22:08 Pain Level 10 12/21/20 22:08
[2020-12-21] MEDS: Normal Saline 1,000 ML 1000 ML IV (22:28)
[2020-12-21] MEDS: Ondansetron 4 MG/2 ML VIAL IVP (22:28)
[2020-12-21] MEDS: Ketorolac 15 MG/ML VIAL IVP (22:28)
[2020-12-21 22:30] LABS: Bilirubin Negative (Negative); Blood Trace-intact (Negative); Clarity Clear (Clear); Glucose Negative (Negative); Ketones Negative (Negative); Leukocyte Esterase Small (Negative); Nitrite Positive (Negative); Urobilinogen 0.2 EU/dL (Up TO 0.2)
--- NOTE | 2020-12-21 22:30 | DI.CT_ITS ---
Exam(s) CT RENAL COLIC WO EXAM: CT RENAL COLIC WO CLINICAL HISTORY: right flank pain. TECHNIQUE: Imaging Protocol: Axial computed tomography images with coronal and sagittal reformatted images were created and reviewed. CONTRAST MATERIAL: Noncontrast COMPARISON: CT CT ABDOMEN PELVIS W from 04/26/2020 FINDINGS: ABDOMEN: Lung Bases: Normal where visualized. Liver: Normal attenuation. No measurable mass. Gallbladder and biliary tract: Status post cholecystectomy. No biliary dilation. Pancreas: Normal density, no calcifications or inflammatory process. Spleen: Normal. Kidneys: Normal size, contour and axis. No radiodense stones or obstructive uropathy. Stable tiny fat ty lesion of the left kidney. Adrenal glands: No masses seen. Abdominal Aorta: Abdominal portion non-dilated. PELVIS: Bladder: Symmetric distention, no gross wall thickening. Bowel: No obstruction or bowel wall thickening. Normal quantity of stool. Normal appendix. Peritoneal cavity: No change in left upper quadrant cyst anterior to spleen and adjacent to splenic f lexure of the colon. Reproductive: Status post hysterectomy. Small follicle right ovary. Bones: Within normal limits. IMPRESSION: Unremarkable CT scan of the abdomen and pelvis. RADIATION DOSE DELIVERED: 956.48mGy.cm Total DLP DATA REPOSITORY: All CT scans at this facility are submitted to the National Radiology Data Registry (NRDR) Dose Index Registry (DIR) with the [employer] (A[employer]). RADIATION OPTIMIZATION: All CT scans at this facility use at least one of these dose optimization te chniques: automated exposure control; mA and/or kV adjustment per patient size (includes targeted exa ms where dose is matched to clinical indication); or iterative reconstruction.
[2020-12-21 22:34] LABS: Bacteria Rare HPF (Negative); C & S Indicated? Yes; Casts Negative LPF (Negative); Crystals Negative HPF (Negative); Epithelial Cells Rare HPF (Negative); Mucus Negative (Negative)
[2020-12-21 22:39] LABS: Abs Immature Grans 0.04 10^3/uL (0.0-0.06); Absolute Basophil Count 0.05 10^3/uL (0.0-0.2); Absolute Eosinophil Count 0.17 10^3/uL (0.0-0.7); Absolute Lymphocyte Count 2.73 10^3/uL (1.2-3.4); Absolute Neutrophil Count 5.17 10^3/uL (1.2-6.7); Basophils % 0.6; Eosinophils % 1.9; HCT 40.1 % (36.0-46.0); HGB 13.4 g/dL (11.2-15.7); Immature Grans % 0.4; Lymphocytes % 30.1; MCH 31.4 pg (27.0-33.0); MCHC 33.4 % (32.0-36.0); MCV 93.9 fL (80-95); Monocytes % 9.9; Neutrophils % 57.1; Nucleated RBC 0 %; Platelet Count 311 10^3/uL (130-400); RBC 4.27 10^6/uL (3.93-5.22); RDW 11.8 % (11.7-14.6); RDW-SD 40.7 fL; WBC 9.06 10^3/uL (4.4-10.8)
[2020-12-21 22:52] LABS: ALT 27 U/L (14-59); AST 14 U/L (15-37); Albumin 3.7 g/dL (3.4-5.0); Alkaline Phosphatase 60 U/L (46-116); Anion Gap 6.5 mmol/L (3-11); BUN 11 mg/dL (7-18); Bilirubin, Total 0.6 mg/dL (0.2-1.0); CO2 28.5 mmol/L (21.0-32.0); CREATININE 0.8 mg/dL (0.55-1.02); Calcium 8.7 mg/dL (8.5-10.1); Chloride 103 mmol/L (98-107); Glucose 92 mg/dL (74-106); Potassium 3.4 mmol/L (3.5-5.1); Sodium 138 mmol/L (136-145); Total Protein 7.4 g/dL (6.4-8.2)
--- NOTE | 2020-12-22 00:14 | DI.VRAD_ITS ---
PROCEDURE INFORMATION: Exam: CT Abdomen And Pelvis Without Contrast Exam date and time: 12/21/2020 10:39 PM Age: 40 years old Clinical indication: Abdominal pain; Flank; Right; Prior surgery; Surgery date: 6+ months; Surgery type: Gallbladde, hysterectomy, ; additional info: Right flank pain TECHNIQUE: Imaging protocol: Computed tomography of the abdomen and pelvis without contrast. Radiation optimization: All CT scans at this facility use at least one of these dose optimization techniques: automated exposure control; mA and/or kV adjustment per patient size (includes targeted exams where dose is matched to clinical indication); or iterative reconstruction. COMPARISON: MR ABDOMEN WO/W 09/28/2020 8:15 AM FINDINGS: Lungs: Lung bases are clear. Liver: Normal. No mass. Gallbladder and bile ducts: Prior cholecystectomy. Pancreas: Normal. No ductal dilation. Spleen: Normal spleen. A small loculated fluid collection at the anterior inferior margin of the spleen is unchanged from September 2020, 3.4 x 1.6 cm. Wall is thin and there is no fat stranding associated with the collection. Adrenal glands: Normal. No mass. Kidneys and ureters: Negative for hydronephrosis or perinephric fat stranding. There are no stones observed in the ureters or the collecting systems. Stomach and bowel: Small bowel is not dilated. Negative for inflammatory changes around the colon. Appendix: A normal appendix is observed, inferior and lateral to the cecum. Intraperitoneal space: Unremarkable. No free air. No significant fluid collection. Vasculature: Multiple phleboliths are present in the pelvis. Lymph nodes: Unremarkable. No enlarged lymph nodes. Urinary bladder: Urinary bladder veras are thin and uniform. There are no stones observed in the urinary bladder. Reproductive: Subtotal hysterectomy. Negative for adnexal mass or cyst. Right ovarian follicle 2.0 cm. Bones/joints: Unremarkable. No acute fracture. Soft tissues: Unremarkable. IMPRESSION: 1. Negative for hydronephrosis or urolithiasis. 2. Normal appendix. Dictated and Authenticated by: Burt Hall MD. Ordering:RUBEN Santacruz MD
[2020-12-22] MEDS: Hyoscyamine 0.125 MG SL/ORAL/CHEW PO (00:38)
[2020-12-22] MEDS: Ciprofloxacin 500 MG TAB PO (00:38)
[2020-12-22 00:40] VITALS: BP 116/65; PULSE 63; RESP 14; O2SAT 96
== END 2020-12-22 00:45 | disposition home or self-care (01) ==
PROVIDERS: Emergency Provider Physician Assistant; PCP Nurse Practitioner Family
DX: N39.0 Urinary tract infection, site not specified (principal); R11.0 Nausea; Z87.440 Personal history of urinary (tract) infections; Z87.442 Personal history of urinary calculi
CPT/HCPCS: 36415; 80053; 96361; 96374; 96375; 99284; 74176; 81003; 81015; 85025; 87086; J1885; J2405; J3490

== ENCOUNTER 2021-01-06 01:31 | Outpatient (CLI) | payer BC, SELFPAY ==
[2021-01-06 12:51] LABS: Bilirubin Negative (Negative); Blood Negative (Negative); Clarity Clear (Clear); Glucose Negative (Negative); Ketones Negative (Negative); Leukocyte Esterase Negative (Negative); Nitrite Negative (Negative); Urobilinogen 0.2 EU/dL (Up TO 0.2); pH 7.5 (5-8)
== END 2021-01-06 01:32 | disposition home or self-care (01) ==
LOC: LBO 01:31
PROVIDERS: PCP Nurse Practitioner Family; Visit Provider Nurse Practitioner Family
DX: N39.0 Urinary tract infection, site not specified (principal)
CPT/HCPCS: 81003

== ENCOUNTER 2021-01-30 15:08 | Outpatient (REF) | payer BC, SELFPAY ==
[2021-01-30 16:48] LABS: Bilirubin Negative (Negative); Blood Negative (Negative); Clarity Clear (Clear); Glucose Negative (Negative); Ketones Negative (Negative); Leukocyte Esterase Trace (Negative); Nitrite Negative (Negative); Urobilinogen 0.2 EU/dL (Up TO 0.2)
[2021-01-30 17:05] LABS: Bacteria Negative HPF (Negative); C & S Indicated? Yes; Crystals Negative HPF (Negative); Epithelial Cells Negative HPF (Negative); Mucus Negative (Negative); RBC Negative HPF (0-2); WBC >50 HPF (0-5)
== END 2021-01-30 15:09 | disposition home or self-care (01) ==
LOC: LBN 15:08
PROVIDERS: PCP Nurse Practitioner Family; Visit Provider Family Medicine
DX: R30.0 Dysuria (principal)
CPT/HCPCS: 81003; 81015; 87086

== ENCOUNTER 2021-08-04 02:11 | Outpatient (CLI) | payer BC, SELFPAY ==
[2021-08-04 07:51] LABS: Abs Immature Grans 0.02 10^3/uL (0.0-0.06); Absolute Basophil Count 0.09 10^3/uL (0.0-0.2); Absolute Eosinophil Count 0.18 10^3/uL (0.0-0.7); Absolute Lymphocyte Count 2.49 10^3/uL (1.2-3.4); Absolute Monocyte Count 0.61 10^3/uL (0.1-0.8); Basophils % 1.3; Eosinophils % 2.7; HCT 40.3 % (36.0-46.0); HGB 13.3 g/dL (11.2-15.7); Immature Grans % 0.3; Lymphocytes % 37.2; MCH 31.4 pg (27.0-33.0); MPV 8.9 fL (8.0-11.0); Monocytes % 9.1; Neutrophils % 49.4; Platelet Count 305 10^3/uL (130-400); RBC 4.24 10^6/uL (3.93-5.22); RDW 11.8 % (11.7-14.6); RDW-SD 40.3 fL; WBC 6.69 10^3/uL (4.4-10.8)
[2021-08-04 08:36] LABS: ALT 22 U/L (14-59); AST 12 U/L (15-37); Albumin 3.4 g/dL (3.4-5.0); Alkaline Phosphatase 59 U/L (46-116); Anion Gap 6.6 mmol/L (3-11); BUN 13 mg/dL (7-18); Bilirubin, Total 0.4 mg/dL (0.2-1.0); CO2 30.4 mmol/L (21.0-32.0); CREATININE 0.9 mg/dL (0.55-1.02); Calcium 8.3 mg/dL (8.5-10.1); Chloride 105 mmol/L (98-107); FREE T4 0.83 ng/dL (0.76-1.46); Glucose 92 mg/dL (74-106); Potassium 3.8 mmol/L (3.5-5.1); Sodium 142 mmol/L (136-145); TSH 2.18 uIU/mL (0.36-3.74); Total Protein 6.5 g/dL (6.4-8.2)
[2021-08-06 15:44] LABS: Anaplasma phagocytophilum Negative (Negative); B. miyamotoi PCR Negative (Negative); Babesia divergens/MO-1 Negative (Negative); Babesia duncani Negative (Negative); Babesia microti Negative (Negative); Ehrlichia chaffeensis Negative (Negative); Ehrlichia ewingii/canis Negative (Negative); Ehrlichia muris eauclairensis Negative (Negative)
[2021-08-07 10:05] LABS: Lyme Ab w Rflx to Lyme Confirm Negative (Negative)
== END 2021-08-04 02:12 | disposition home or self-care (01) ==
LOC: LBO 02:11
PROVIDERS: PCP Nurse Practitioner Family; Visit Provider Nurse Practitioner Family
DX: R53.83 Other fatigue (principal)
CPT/HCPCS: 36415; 80053; 87798; 84439; 84443; 85025; 86618

== ENCOUNTER 2021-11-26 12:12 | Emergency (ER) | payer BC, SELFPAY ==
--- NOTE | 2021-11-26 12:15 | RT.EKG_ITS ---
APPROVED REPORT Exam: Resting ECG Reason for Exam: weak dizzy Patient Location: E HR:88 bpm ECG Measurements Heart Rate 88 AXIS MN 153 P 53 QRSd 85 QRS -14 QT 371 T 42 QTc 450 Conclusion Sinus rhythm...normal P axis, V-rate 60- 99
[2021-11-26 12:40] VITALS: BP 138/90; PULSE 95; RESP 18; O2SAT 98
[2021-11-26] MEDS: Normal Saline 1,000 ML 1000 ML IV (13:20)
[2021-11-26 13:23] LABS: Abs Immature Grans 0.04 10^3/uL (0.0-0.06); Absolute Basophil Count 0.07 10^3/uL (0.0-0.2); Absolute Eosinophil Count 0.12 10^3/uL (0.0-0.7); Absolute Lymphocyte Count 1.89 10^3/uL (1.2-3.4); Absolute Monocyte Count 0.89 10^3/uL (0.1-0.8); Absolute Neutrophil Count 6.55 10^3/uL (1.2-6.7); Basophils % 0.7; Eosinophils % 1.3; HGB 13.9 g/dL (11.2-15.7); Immature Grans % 0.4; Lymphocytes % 19.8; MCH 31.4 pg (27.0-33.0); MCHC 33.9 % (32.0-36.0); MCV 93 fL (80-95); MPV 9.1 fL (8.0-11.0); Monocytes % 9.3; Neutrophils % 68.5; Platelet Count 335 10^3/uL (130-400); RBC 4.43 10^6/uL (3.93-5.22); RDW 11.9 % (11.7-14.6); RDW-SD 41.2 fL; WBC 9.56 10^3/uL (4.4-10.8)
[2021-11-26] MEDS: Ondansetron 4 MG/2 ML VIAL IVP (13:28)
[2021-11-26 13:38] LABS: ALT 26 U/L (14-59); AST 11 U/L (15-37); Albumin 3.7 g/dL (3.4-5.0); Alkaline Phosphatase 67 U/L (46-116); Anion Gap 6.8 mmol/L (3-11); BUN 11 mg/dL (7-18); Bilirubin, Total 0.5 mg/dL (0.2-1.0); CO2 27.2 mmol/L (21.0-32.0); Calcium 8.5 mg/dL (8.5-10.1); Chloride 104 mmol/L (98-107); Glucose 93 mg/dL (74-106); Lipase 71 U/L (73-393); Magnesium 1.9 mg/dL (1.8-2.4); Potassium 3.7 mmol/L (3.5-5.1); Sodium 138 mmol/L (136-145); Total Protein 7.6 g/dL (6.4-8.2)
[2021-11-26 13:51] LABS: Bilirubin Negative (Negative); Blood Negative (Negative); Clarity Clear (Clear); Glucose Negative (Negative); Ketones Negative (Negative); Leukocyte Esterase Negative (Negative); Nitrite Negative (Negative); Urobilinogen 0.2 EU/dL (Up TO 0.2); pH 7.5 (5-8)
--- NOTE | 2021-11-26 14:42 | W.ED.GENAD ---
Discharge Plan Disposition Patient Disposition: HOME Condition: Stable Discharge Details Clinical Impression: Nausea, Diarrhea Primary Care Provider: Shefali Vizcarra ED Provider: Makenna Angela Home Meds and New Rx's Prescriptions: Continued (DME) inhalational spacing device Spacer See Rx Instructions .ROUTE .MEDSUPPLY Qty: 1 4RF Rx Instructions: Use with inhaler Arnuity Ellipta 100 mcg/actuation blister with device 1 inh IH DAILY Qty: 90 4RF Hold Instructions: Uses in Fall and Spring Myrbetriq 25 mg tablet extended release 24 hr 25 mg PO DAILY Qty: 56 0RF levalbuterol tartrate [Xopenex HFA] 45 mcg/actuation HFA aerosol inhaler 2 inh IH .Q4-6H PRN (Reason: shortness of breath or wheezing) Qty: 15 4RF multivitamin [One Daily Essential] 1 EACH tablet 2 ea PO DAILY cholecalciferol (vitamin D3) 125 mcg (5,000 unit) capsule 5,000 unit PO .Every other day pantoprazole 40 mg tablet,delayed release (DR/EC) 40 mg PO DAILY Qty: 90 4RF montelukast [Singulair] 10 mg tablet 10 mg PO DAILY Qty: 90 4RF bupropion HCl 300 mg tablet extended release 24 hr 300 mg PO DAILY Qty: 90 3RF lactulose 10 gram/15 mL (15 mL) solution 10 g PO ONCE Qty: 15 0RF Rx Instructions: for breath testing for SIBO hyoscyamine sulfate [Levsin] 0.125 mg tablet 0.125 mg PO BID-QID PRN (Reason: bladder spasms) Qty: 10 0RF ipratropium-albuterol 0.5 mg-3 mg(2.5 mg base)/3 mL solution for nebulization 3 ml IH Q8H PRN sucralfate [Carafate] 1 gram tablet 1 g PO QACHS PRN Rx Instructions: complete a 6wk course. Refills given for prn basis dicyclomine 20 mg tablet 20 mg PO QID PRN Discharge Instructions Instructions: Acute Nausea and Vomiting (ED), Acute Diarrhea (ED) Additional Instructions: Take Zofran as needed for nausea and vomiting Clear liquid diet as tolerated, may advance to brat diet, bananas, rice, applesauce, toast Please return immediately should you have fever, chills, or with any new or worsening complaints Referrals: Makenna Angela PA [Emergency Provider] - Discharge Data Discharge Date/Time-TO BE ENTERED AT DEPARTURE: 11/26/21 14:58 Medical Decision Making Patient appears well She is feeling symptomatically improved. Zofran and IV fluids Diagnostic labs do not show acute abnormality Able to tolerate p.o. Return precautions discussed and patient expressed understanding Medical Records Medical records reviewed: Yes I reviewed the patient's medical records. Lab Data Lab results reviewed: Yes I reviewed the patient's lab results. HPI General Date/Time Provider Initiated Documentation: 11/26/21 12:56. HPI Narrative: This 41-year-old female presents with nausea, diaphoresis, and diarrhea that started abruptly today. Denies any chest pain or shortness of breath. Has had some intermittent abdominal cramping. He has had numerous episodes of watery stool. Denies any blood. Denies any known sick contacts or spoiled food consumption. Denies any travel. Related Data Home Medications Medication Instructions Recorded Confirmed multivitamin (One Daily Essential 2 ea PO DAILY 01/04/15 11/26/21 tablet) cholecalciferol (vitamin D3) 125 5,000 unit PO .Every other day 07/17/19 11/26/21 mcg (5,000 unit) capsule levalbuterol tartrate 45 2 inh inhalation .Q4-6H PRN 07/17/19 11/26/21 mcg/actuation aerosol inhaler shortness of breath or wheezing (Xopenex HFA) #15 grams inhalational spacing device #1 ea 07/14/20 11/26/21 dicyclomine 20 mg tablet 20 mg PO QID PRN 12/22/20 11/26/21 hyoscyamine sulfate 0.125 mg 0.125 mg PO BID-QID PRN bladder 12/22/20 11/26/21 tablet (Levsin) spasms #10 tabs ipratropium 0.5 mg-albuterol 3 mg 3 ml inhalation Q8H PRN 12/22/20 11/26/21 (2.5 mg base)/3 mL nebulization soln sucralfate 1 gram tablet (Carafate) 1 g PO QACHS PRN 12/22/20 11/26/21 pantoprazole 40 mg tablet,delayed 40 mg PO DAILY #90 tab-caps 02/17/21 11/26/21 release mirabegron 25 mg tablet,extended 25 mg PO DAILY #56 tabs 03/30/21 11/26/21 release 24 hr (Myrbetriq) montelukast 10 mg tablet 10 mg PO DAILY #90 tab-caps 06/07/21 11/26/21 (Singulair) fluticasone furoate 100 1 inh inhalation DAILY #90 ea 07/21/21 11/26/21 mcg/actuation blister powder for inhalation (Arnuity Ellipta) bupropion HCl 300 mg 24 hr tablet, 300 mg PO DAILY #90 tabs 07/24/21 11/26/21 extended release lactulose 10 gram/15 mL (15 mL) 10 g (15 mL) PO ONCE breath 08/31/21 11/26/21 oral solution testing #15 mL Previous Rx's Medication Instructions Recorded levalbuterol tartrate 45 2 inh inhalation .Q4-6H PRN 07/17/19 mcg/actuation aerosol inhaler shortness of breath or wheezing (Xopenex HFA) #15 grams inhalational spacing device #1 ea 07/14/20 hyoscyamine sulfate 0.125 mg 0.125 mg PO BID-QID PRN bladder 12/22/20 tablet (Levsin) spasms #10 tabs pantoprazole 40 mg tablet,delayed 40 mg PO DAILY #90 tab-caps 02/17/21 release mirabegron 25 mg tablet,extended 25 mg PO DAILY #56 tabs 03/30/21 release 24 hr (Myrbetriq) montelukast 10 mg tablet 10 mg PO DAILY #90 tab-caps 06/07/21 (Singulair) fluticasone furoate 100 1 inh inhalation DAILY #90 ea 07/21/21 mcg/actuation blister powder for inhalation (Arnuity Ellipta) bupropion HCl 300 mg 24 hr tablet, 300 mg PO DAILY #90 tabs 07/24/21 extended release lactulose 10 gram/15 mL (15 mL) 10 g (15 mL) PO ONCE breath 08/31/21 oral solution testing #15 mL Allergies Allergy/AdvReac Type Severity Reaction Status Date / Time Latex, Natural Rubber Allergy Intermediate rash Verified 11/26/21 14:56 metronidazole Allergy Intermediate Skin Rash Verified 11/26/21 14:56 sumatriptan [From Imitrex] AdvReac Unknown palpitation Verified 11/26/21 14:56 sumatriptan succinate AdvReac Unknown palpitation Verified 11/26/21 14:56 [From Imitrex] enviornmental Allergy Mild head Uncoded 11/26/21 14:56 congestion General Stated Complaint: GenMedical ARDEN: 3 Review of Systems All systems reviewed & are unremarkable except as noted in HPI and below PFSH All Active Problems (Updated 11/26/21 @ 14:45 by MYRIAM Navarrete) Nausea (Acute) Diarrhea (Acute) Obstructive sleep apnea (Chronic) Asthma (Chronic) Chronic erosive gastritis (Chronic) GERD with esophagitis (Chronic) EGD 2016 EGD 01/11/20 Irritable bowel syndrome (Chronic) Hyperlipidemia (Chronic) Major depressive disorder (Chronic) Generalized anxiety disorder (Chronic) Migraine headache with aura (Chronic) Angiomyolipoma of left kidney (Chronic) Pelvic floor dysfunction (Chronic) Allergic rhinitis (Chronic) Obesity (Chronic) Medical History (Updated 11/26/21 @ 14:45 by MYRIAM Navarrete) Colon abnormality 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 Benites Complicated UTI (urinary tract infection) Vitamin D insufficiency Surgical History (Updated 07/21/21 @ 10:44 by Shefali Vizcarra NP) History of bilateral tubal ligation History of colonoscopy (04/25/20) History of endometrial ablation History of esophagogastroduodenoscopy (EGD) (04/25/20) 2016 and 2019 S/P cholecystectomy (01/15/17) S/P dilation and curettage S/P laparoscopic hysterectomy (03/08/15) [place] [facility] [place] AUB, endometriosis Status post bilateral salpingectomy (03/08/15) Family History Mother Alcohol abuse Essential hypertension Rheumatoid arthritis Depression Hyperlipidemia Father Essential hypertension Hyperlipidemia Type 2 diabetes mellitus Atrial fibrillation Heart disease Sister No problems noted. Sister No problems noted. Sister No problems noted. Brother No problems noted. Brother No problems noted. Daughter No problems noted. Daughter No problems noted. Maternal Grandfather Heart disease Essential hypertension Type 2 diabetes mellitus Hyperlipidemia Myocardial infarction Maternal Grandmother Essential hypertension Hyperlipidemia Paternal Grandfather Liver disease Paternal Grandmother No problems noted. Social History (Updated 07/21/21 @ 13:27 by Merari Reid) Smoking/Tobacco Use Status: Former Tobacco Use tobacco type: cigarettes Tobacco: How many years used: 15 Second Hand Exposure: Yes Smoking risk assessment performed?: Yes Alcohol Intake: current Alcohol Intake frequency: a few times a week Alcohol type: wine Drug use: Never Substance use type: does not use Caregiver/Support person: No Household members: spouse, family and children Housing: house Communication Needs: None Do you need help understanding health information?: Rarely Pets and animals: Yes Pets and animals: cat(s) and dog(s) Sexually active: Yes Current gender identity: female What is your relationship status?: How often do you talk on the phone with friends or family?: once per week How often do you attend mu-ism or congregation services?: 4 or more times per year Do you belong to any clubs or organized social groups?: no Panel score (0-1 are the most socially isolated patients): 2 Jennifer/Gnosticism: earth based spirituality Special jennifer needs: No Seatbelt use: always Helmet use: Yes Helmet use: always Drive intox or ride w/intox home delivery driver: No Do you feel safe at home: Yes Do you feel safe in your relationship?: Yes Female Reproductive History Menstrual Menopause type: surgical (Hysterectomy for AUB in 2015) History History 2 Para 2 Hx # Term Pregnancies Multiple births Hx # Pregnancies Ectopic pregnancies AB induced Hx Number of Living Children 2 AB spontaneous Exam Const General: cooperative, comfortable and no acute distress Resp Effort & Inspection: normal respiratory effort Auscultation: clear to auscultation bilaterally Cardio Rate: regular rate Rhythm: regular rhythm GI Inspection: normal to inspection Other: Nontender abdominal exam Skin General skin exam: no rashes or lesions noted Neuro General: patient alert and patient oriented x3 Cognition: normal cognition Speech: speech normal Gait: normal gait Motor: strength 5/5 throughout Sensory Exam: no sensory deficits noted Course Vital Signs Vital signs: Vital Signs Pulse 95 H 11/26/21 12:40 Respiratory Rate 18 11/26/21 12:40 Blood Pressure 138/90 11/26/21 12:40 Pulse Oximetry 98 08/07/22 12:40 Temperature Source Temporal Artery Scan 11/26/21 12:40 Pulse 95 H 11/26/21 12:40 Respiratory Rate 18 11/26/21 12:40 Blood Pressure 138/90 11/26/21 12:40 Blood Pressure Position Supine 11/26/21 12:40 Pulse Oximetry 98 11/26/21 12:40 Oxygen Delivery Method Room Air 11/26/21 12:40 Oxygen Flow Rate 0 11/26/21 12:40 Pain Level 0 11/26/21 12:40 Lab/Test Results Lab/Test Results: Laboratory Tests Range/Units 11/26/21 11/26/21 11/26/21 13:15 13:15 13:30 WBC (4.4-10.8) 10^3/uL 9.56 RBC (3.93-5.22) 10^6/uL 4.43 Hgb (11.2-15.7) g/dL 13.9 Hct (36.0-46.0) % 41.0 MCV (80-95) fL 93 MCH (27.0-33.0) pg 31.4 MCHC (32.0-36.0) % 33.9 RDW (11.7-14.6) % 11.9 Plt Count (130-400) 10^3/uL 335 MPV (8.0-11.0) fL 9.1 Immature Gran % 0.4 Neutrophils % 68.5 Lymphocytes % 19.8 Monocytes % 9.3 Eosinophils % 1.3 Basophils % 0.7 Nucleated RBC % (0.0-0.3) % 0.0 Absolute Neutrophils (1.2-6.7) 10^3/uL 6.55 Absolute Lymphocytes (1.2-3.4) 10^3/uL 1.89 Absolute Monocytes (0.1-0.8) 10^3/uL 0.89 H Absolute Eosinophils (0.0-0.7) 10^3/uL 0.12 Absolute Basophils (0.0-0.2) 10^3/uL 0.07 Sodium (136-145) mmol/L 138 Potassium (3.5-5.1) mmol/L 3.7 Chloride (98-107) mmol/L 104 Carbon Dioxide (21.0-32.0) mmol/L 27.2 Anion Gap (3-11) mmol/L 6.8 BUN (7-18) mg/dL 11 Creatinine (0.55-1.02) mg/dL 1.0 Estimated GFR/1.73 m2 (mL/min/1.73m2) >= 60.00 Glucose (74-106) mg/dL 93 Calcium (8.5-10.1) mg/dL 8.5 Magnesium (1.8-2.4) mg/dL 1.9 Total Bilirubin (0.2-1.0) mg/dL 0.5 AST (15-37) U/L 11 L ALT (14-59) U/L 26 Alkaline Phosphatase (46-116) U/L 67 Total Protein (6.4-8.2) g/dL 7.6 Albumin (3.4-5.0) g/dL 3.7 Lipase (73-393) U/L 71 Urine Color (Yellow) Yellow Urine Clarity (Clear) Clear Urine pH (5-8) 7.5 Ur Specific [place] (1.005-1.025) 1.020 Urine Protein (Negative) mg/dL Negative Urine Ketones (Negative) mg/dL Negative Urine Blood (Negative) Negative Urine Nitrite (Negative) Negative Urine Bilirubin (Negative) Negative Urine Urobilinogen (Up TO 0.2) EU/dL 0.2 Ur Leukocyte Esterase (Negative) Negative Urine Glucose (Negative) mg/dL Negative
[2021-11-26] MEDS: Ondansetron O.D.T. 4 MG TABEF, 3 TABS/BTL PO (14:54)
[2021-11-26 14:57] VITALS: BP 129/95; PULSE 62; RESP 16; TEMP 37.1; O2SAT 98
== END 2021-11-26 14:58 | disposition home or self-care (01) ==
PROVIDERS: Emergency Provider Physician Assistant; PCP Nurse Practitioner Family
DX: R11.0 Nausea (principal); R19.7 Diarrhea, unspecified; Z87.891 Personal history of nicotine dependence; R42 Dizziness and giddiness
CPT/HCPCS: 36415; 80053; 83690; 93005; 96361; 96374; 99284; 81003; 83735; 85025; 93010; J2405

== ENCOUNTER 2022-08-10 00:48 | Outpatient (CLI) | payer BC, SELFPAY ==
--- NOTE | 2022-08-10 12:46 | DI.MAMMO_ITS ---
Exam(s) MAMMO SCREENING EXAM: MAMMO SCREENING CLINICAL HISTORY: baseline, screening,z12.39. TECHNIQUE: Bilateral full field digital CC and MLO mammographic images were obtained with 3D tomosyn thesis and utilizing computer aided detection (CAD). COMPARISON: None. Baseline mammogram on this 41-year-old patient. FINDINGS: Fibroglandular tissue pattern is moderately dense. No significant findings in left breast. In the right breast on the MLO view there is an asymmetric density-possible nodule located 6 cm above the nipple and measuring approximately 8 x 7 millimeters. There are no malignant-appearing microcalcification groups in this region or elsewhere in either [address]. There is no significant architectural distortion nor skin thickening-retraction. IMPRESSION: 1. No radiographic evidence of malignancy in left breast. 2. Asymmetric density-possible nodule in the right breast. Spot compression MLO view and ultrasound recommended. BI-RADS Category 0 - Assessment Incomplete: Need additional imaging evaluation Breast Density - Category C - Heterogeneously dense Breast density Category C or D implies that the patient has dense breast tissue. Dense breast tissue can make it harder to find cancer on a mammogram. Dense breast tissue is also associated with an incr eased risk of breast cancer. This information about the result of the mammogram report was provided to the patient to raise their awareness. Use this report when you speak with the patient about their risks for breast cancer, which includes their family history. At that time, you may recommend additional screening tests (Ultrasoun d or MRI) as these tests may add significant information. A negative radiographic report should not delay biopsy if a dominant or clinically suspicious mass is present. Up to ten percent of cancers are not identified on mammography. A negative report may reinforce clinical impression. Adenosis and dense breasts may obscure an underlying neoplasm. False positive reports average 6 to 10%. Patient will receive a letter notifying them of these results.
== END 2022-08-10 01:08 ==
LOC: DI 00:49
PROVIDERS: PCP Nurse Practitioner Family; Visit Provider Nurse Practitioner Family
DX: Z12.31 Encounter for screening mammogram for malignant neoplasm of breast (principal)
CPT/HCPCS: 77063; 77067

== ENCOUNTER 2022-08-15 01:08 | Outpatient (CLI) | payer BC, SELFPAY ==
--- NOTE | 2022-08-15 | DI.MAMMO_ITS ---
Exam(s) MG MAMMO SCREEN CALL BACK UNI US BREAST RT LIMITED EXAM: MG MAMMO SCREEN CALL BACK UNI CLINICAL HISTORY: F/U MAMMO, R92.8, ASYMMETRIC DENSITY,? NODULE. TECHNIQUE: mediolateral oblique Full Field Digital Mammography views of the right breast with Compu ter Aided Diagnosis followed by Tomosynthesis and right breast ultrasound. COMPARISON: MG MG MAMMO SCREENING from 08/10/2022 US US BREAST RT LIMITED from 08/15/2022 FINDINGS: Mammography/Tomosynthesis: Masses/Architectural Distortion: None seen. The questioned area of nodularity in the superior right breast disperses upon focal compression, consistent with overlying fibroglandular tissue.. Microcalcifictions: No suspicious pleomorphic-type are seen. Skin Thickening/Nipple Retraction: None. Right breast US: Echotexture: Normal appearance of the glandular tissue. Shadowing: No suspicious foci. Cyst: 9 x 5 x 3 millimeters cyst 11 o'clock position 3 cm from the nipple. Solid lesions: None seen. Ductal dilation: None. IMPRESSION: 1. No evidence of malignancy is noted. 2. Unless there is more urgent need, follow-up screening mammography is recommended, as per [place] [employer] guidelines. BI-RADS Cat 2 - Benign Findings Breast Density - Category C - Heterogeneously dense Breast density category C or D implies that the patient has dense breast tissue. Dense breast tissue is very common and is not abnormal but dense breast tissue can make it harder to find cancer on a ma mmogram. Also, dense breast tissue may increase their breast cancer risk. This information about the result of the mammogram report was provided to the patient to raise their awareness. Use this report when you speak with the patient about their risks for breast cancer, which includes their family hist ory. At that time, you may recommend for more screening tests (Ultrasound or MRI) as they might be us eful based on their risk. A negative radiographic report should not delay biopsy if a dominant or clinically suspicious mass is present. Up to ten percent of cancers are not identified on mammography. A negative report may reinforce clinical impression. Adenosis and dense breasts may obscure an underlying neoplasm. False positive reports average 6 to 10%. Patient will receive a letter notifying them of these results.
== END 2022-08-15 01:28 ==
LOC: DI 01:08
PROVIDERS: PCP Nurse Practitioner Family; Visit Provider Nurse Practitioner Family
DX: R92.8 Other abnormal and inconclusive findings on diagnostic imaging of breast (principal)
CPT/HCPCS: 76642; 77063; 77067

== ENCOUNTER 2022-09-03 03:00 | Outpatient (CLI) | payer BC, SELFPAY ==
[2022-09-03 12:35] LABS: Bilirubin Negative (Negative); Blood Trace-intact (Negative); Clarity Clear (Clear); Glucose Negative (Negative); Ketones Negative (Negative); Leukocyte Esterase Negative (Negative); Nitrite Negative (Negative); Specific Gravity >= 1.030 (1.005-1.025); Urobilinogen 0.2 mg/dL (Up to 0.2)
[2022-09-03 12:36] LABS: Abs Immature Grans 0.03 10^3/uL (0.0-0.06); Absolute Basophil Count 0.05 10^3/uL (0.0-0.2); Absolute Eosinophil Count 0.17 10^3/uL (0.0-0.7); Absolute Lymphocyte Count 1.88 10^3/uL (1.2-3.4); Absolute Monocyte Count 0.52 10^3/uL (0.1-0.8); Absolute Neutrophil Count 3.96 10^3/uL (1.2-6.7); Basophils % 0.8; Eosinophils % 2.6; HCT 39.1 % (36.0-46.0); HGB 12.9 g/dL (11.2-15.7); Immature Grans % 0.5; Lymphocytes % 28.4; MCH 30.9 pg (27.0-33.0); MCV 94 fL (80-95); MPV 9.7 fL (8.0-11.0); Monocytes % 7.9; Neutrophils % 59.8; Platelet Count 309 10^3/uL (130-400); RBC 4.17 10^6/uL (3.93-5.22); RDW-SD 41.9 fL; WBC 6.61 10^3/uL (4.4-10.8)
[2022-09-03 12:47] LABS: ESR 3 mm/hr (0-20)
[2022-09-03 12:56] LABS: Bacteria Rare HPF (Negative); C & S Indicated? No; Casts Negative LPF (Negative); Crystals Negative HPF (Negative); Epithelial Cells Many HPF (Negative); Mucus Negative (Negative); WBC 0-2 HPF (0-5)
[2022-09-03 13:13] LABS: ALT 25 U/L (14-59); AST 13 U/L (15-37); Albumin 3.5 g/dL (3.4-5.0); Alkaline Phosphatase 62 U/L (46-116); Anion Gap 5.7 mmol/L (3-11); BUN 10 mg/dL (7-18); Bilirubin, Total 0.8 mg/dL (0.2-1.0); C-Reactive Protein 0.31 mg/dL (0.0-0.3); CO2 27.3 mmol/L (21.0-32.0); Calcium 8.6 mg/dL (8.5-10.1); Chloride 105 mmol/L (98-107); Estimated GFR 73.04 (mL/min/1.73m2); Glucose 91 mg/dL (74-106); Potassium 3.1 mmol/L (3.5-5.1); Sodium 138 mmol/L (136-145); Total Protein 7.2 g/dL (6.4-8.2)
[2022-09-03 17:47] LABS: Rheumatoid Factor <8.6 IU/mL (<12.0)
[2022-09-04 12:36] LABS: SS-A Antibody 1.1 Units (<20.0)
[2022-09-04 14:10] LABS: ANA Interpretation Negative (Negative)
[2022-09-04 15:47] LABS: SS-B (La) Ab, IgG 2.1 Units (<20.0)
== END 2022-09-03 03:01 | disposition home or self-care (01) ==
LOC: LOS 03:00
PROVIDERS: PCP Nurse Practitioner Family; Visit Provider Nurse Practitioner Family
DX: H04.123 Dry eye syndrome of bilateral lacrimal glands (principal); M25.50 Pain in unspecified joint
CPT/HCPCS: 36415; 80053; 85652; 81003; 81015; 85025; 86038; 86140; 86235; 86431

== ENCOUNTER 2022-09-21 11:36 | Outpatient (REF) | payer BC, SELFPAY | END 2022-09-21 11:37 | disposition home or self-care (01) | LOC: LBN 11:36 | PROVIDERS: PCP Nurse Practitioner Family; Visit Provider Nurse Practitioner Family | DX: N76.0 Acute vaginitis (principal) | CPT/HCPCS: 87480; 87510; 87660 ==